=== PATIENT | female | born 1965 | race Caucasian/White ===

== ENCOUNTER 2017-08-27 18:06 | Emergency (ER) | payer MEDICARE ==
[~2017-08-27] VITALS: Ht 154.9 cm; Wt 78.5 kg
== END 2017-08-27 22:56 | disposition home or self-care (01) ==
LOC: ED 18:06
DX: F32.9 Major depressive disorder, single episode, unspecified (principal); Z88.0 Allergy status to penicillin

== ENCOUNTER 2017-08-28 09:06 | Emergency (ER) | payer OTHER ==
[~2017-08-28] VITALS: Ht 154.9 cm; Wt 78.5 kg
[2017-08-28 09:29] LABS: BASO # 0.1 10*3/uL (0.0-0.1); BASO % 1.3 % (0.0-1.0); EOS # 0.4 10*3/uL (0.0-0.4); EOS % 6.8 % (1.0-4.0); HEMATOCRIT 38.9 % (37.0-47.0); HEMOGLOBIN 13.4 g/dl (12.0-16.0); LYMPH # 1.8 10*3/uL (1.3-4.4); LYMPH % 29.3 % (27.0-41.0); MEAN CELL VOLUME 91.3 fl (81.0-99.0); MEAN CORPUSCULAR HGB 31.5 pg (27.0-31.0); MEAN CORPUSCULAR HGB CONC 34.4 g/dl (33.0-37.0); MEAN PLATELET VOLUME 10.1 fl (9.6-12.3); MONO # 0.4 10*3/uL (0.1-1.0); MONO % 6.8 % (3.0-9.0); NEUT # 3.4 10*3/uL (2.3-7.9); NEUT % 55.5 % (47.0-73.0); PLATELET COUNT AUTOMATED 280 10*3/uL (130-400); RED BLOOD COUNT 4.26 10*6/uL (4.10-5.10); RED CELL DISTRI WIDTH 13.9 % (0-14.5); WHITE BLOOD COUNT 6.2 10*3/uL (4.8-10.8)
[2017-08-28 09:42] LABS: ALBUMIN 3.3 gm/dl (3.1-4.5); ALKALINE PHOSPHATASE 113 U/L (45-117); BUN 8 mg/dl (7-24); CREATININE 0.94 mg/dL (0.55-1.02); SGOT/AST 31 IU/L (3-35); SGPT/ALT 30 U/L (12-78); TOTAL PROTEIN 7.5 gm/dL (6.4-8.2)
[2017-08-28 09:47] LABS: CHLORIDE 105 mmol/L (98-107); POTASSIUM 3.1 mmol/L (3.5-5.1); SODIUM 141 mmol/L (136-145)
[2017-08-28 10:00] LABS: ACETAMINOPHEN (TYLENOL) < 2.0 ug/ml (10-30); ETHYL ALCOHOL < 3.0 mg/dl (<3)
[2017-08-28 10:46] LABS: BILIRUBIN NEGATIVE (NEGATIVE); BLOOD 1+ (NEGATIVE); CLARITY CLEAR (CLEAR); COLOR YELLOW (YELLOW); GLUCOSE NEGATIVE (NEGATIVE); KETONE NEGATIVE (NEGATIVE); LEUKO ESTERASE 1+ (NEGATIVE); NITRITE NEGATIVE (NEGATIVE); PH 5.5 (5.0-9.0); UROBILINOGEN 0.2 E.U./dl (0.2-1.0)
[2017-08-28 10:53] LABS: URINE AMPHETAMINES < 1000 (1000ng/ml); URINE BARBITURATES < 200 (200ng/ml); URINE BENZODIAZEPINES < 200 (200ng/ml); URINE CANNABINOIDS (THC) < 50 (50ng/ml); URINE COCAINE < 300 (300ng/ml); URINE METHADONE < 300 (300ng/ml); URINE OPIATES < 300 (300ng/ml)
[2017-08-28 10:54] LABS: BACTERIA TRACE
[2017-08-28 10:57] LABS: URINE PHENCYCLIDINE < 25 (25ng/ml)
== END 2017-08-29 10:06 | disposition home or self-care (01) ==
LOC: ED 09:06
PROVIDERS: Nurse Practitioner Family
DX: F32.9 Major depressive disorder, single episode, unspecified (principal)

== ENCOUNTER 2017-09-02 21:55 | Emergency (ER) | payer OTHER ==
[~2017-09-02] VITALS: Ht 154.9 cm; Wt 78.5 kg
[2017-09-02] MEDS ORDERED: BENADRYL ALLERG25 M5 PO (22:17)
== END 2017-09-02 22:19 | disposition home or self-care (01) ==
LOC: ED 21:55
DX: R11.0 Nausea (principal); T43.595A Adverse effect of other antipsychotics and neuroleptics, initial encounter; Z88.0 Allergy status to penicillin; Z88.8 Allergy status to other drugs, medicaments and biological substances; Y92.9 Unspecified place or not applicable

== ENCOUNTER 2017-09-11 08:29 | Emergency (ER) | payer OTHER ==
[~2017-09-11] VITALS: Ht 154.9 cm; Wt 78.5 kg
[~2017-09-11 08:29] MED LIST: BENADRYL ALLERG25 M5 PO
[2017-09-11 09:01] LABS: BASO # 0.1 10*3/uL (0.0-0.1); BASO % 1.3 % (0.0-1.0); EOS # 0.3 10*3/uL (0.0-0.4); EOS % 4.8 % (1.0-4.0); HEMATOCRIT 39.3 % (37.0-47.0); HEMOGLOBIN 13.5 g/dl (12.0-16.0); LYMPH # 1.7 10*3/uL (1.3-4.4); LYMPH % 24.5 % (27.0-41.0); MEAN CELL VOLUME 90.8 fl (81.0-99.0); MEAN CORPUSCULAR HGB 31.2 pg (27.0-31.0); MEAN CORPUSCULAR HGB CONC 34.4 g/dl (33.0-37.0); MEAN PLATELET VOLUME 9.8 fl (9.6-12.3); MONO # 0.5 10*3/uL (0.1-1.0); MONO % 7.2 % (3.0-9.0); NEUT # 4.4 10*3/uL (2.3-7.9); NEUT % 61.6 % (47.0-73.0); PLATELET COUNT AUTOMATED 356 10*3/uL (130-400); RED BLOOD COUNT 4.33 10*6/uL (4.10-5.10); RED CELL DISTRI WIDTH 13.3 % (0-14.5); WHITE BLOOD COUNT 7.1 10*3/uL (4.8-10.8)
[2017-09-11 09:14] LABS: ALBUMIN 3.4 gm/dl (3.1-4.5); ALKALINE PHOSPHATASE 100 U/L (45-117); BUN 11 mg/dl (7-24); CHLORIDE 106 mmol/L (98-107); CREATININE 1.18 mg/dL (0.55-1.02); POTASSIUM 3.6 mmol/L (3.5-5.1); SGOT/AST 19 IU/L (3-35); SGPT/ALT 24 U/L (12-78); SODIUM 142 mmol/L (136-145); TOTAL PROTEIN 7.6 gm/dL (6.4-8.2)
[2017-09-11 09:21] LABS: ACETAMINOPHEN (TYLENOL) < 2.0 ug/ml (10-30); ETHYL ALCOHOL < 3.0 mg/dl (<3)
[2017-09-11 10:28] LABS: BILIRUBIN NEGATIVE (NEGATIVE); BLOOD 2+ (NEGATIVE); CLARITY SL CLOUDY (CLEAR); COLOR YELLOW (YELLOW); GLUCOSE NEGATIVE (NEGATIVE); KETONE NEGATIVE (NEGATIVE); LEUKO ESTERASE 1+ (NEGATIVE); NITRITE NEGATIVE (NEGATIVE); SPECIFIC GRAVITY 1.015 (1.005-1.030); UROBILINOGEN 0.2 E.U./dl (0.2-1.0)
[2017-09-11 10:36] LABS: URINE AMPHETAMINES < 1000 (1000ng/ml); URINE BARBITURATES < 200 (200ng/ml); URINE BENZODIAZEPINES < 200 (200ng/ml); URINE CANNABINOIDS (THC) < 50 (50ng/ml); URINE COCAINE < 300 (300ng/ml); URINE METHADONE < 300 (300ng/ml); URINE OPIATES < 300 (300ng/ml)
[2017-09-11 10:39] LABS: URINE PHENCYCLIDINE < 25 (25ng/ml)
[2017-09-11 10:43] LABS: BACTERIA TRACE; MUCOUS 3+; WBC 21-30 wbc/hpf (0-5)
== END 2017-09-11 15:49 | disposition home or self-care (01) ==
LOC: ED 08:29
PROVIDERS: Student in an Organized Health Care Education/Training Program
DX: F32.9 Major depressive disorder, single episode, unspecified (principal); Z88.0 Allergy status to penicillin; Z88.8 Allergy status to other drugs, medicaments and biological substances

== ENCOUNTER 2017-09-28 07:59 | Emergency (ER) | payer OTHER ==
[~2017-09-28] VITALS: Ht 154.9 cm; Wt 75.7 kg
[2017-09-28 08:29] LABS: BASO # 0.1 10*3/uL (0.0-0.1); EOS # 0.3 10*3/uL (0.0-0.4); EOS % 4.4 % (1.0-4.0); HEMATOCRIT 35.3 % (37.0-47.0); HEMOGLOBIN 12.4 g/dl (12.0-16.0); LYMPH # 1.5 10*3/uL (1.3-4.4); LYMPH % 24.4 % (27.0-41.0); MEAN CELL VOLUME 88.9 fl (81.0-99.0); MEAN CORPUSCULAR HGB 31.2 pg (27.0-31.0); MEAN CORPUSCULAR HGB CONC 35.1 g/dl (33.0-37.0); MEAN PLATELET VOLUME 10.1 fl (9.6-12.3); MONO # 0.5 10*3/uL (0.1-1.0); MONO % 7.5 % (3.0-9.0); NEUT # 3.8 10*3/uL (2.3-7.9); NEUT % 62.4 % (47.0-73.0); PLATELET COUNT AUTOMATED 270 10*3/uL (130-400); RED BLOOD COUNT 3.97 10*6/uL (4.10-5.10); WHITE BLOOD COUNT 6.1 10*3/uL (4.8-10.8)
[2017-09-28 08:38] LABS: ACT PARTIAL THROMBO TIME 25.5 SECONDS (20.8-31.5)
[2017-09-28 08:49] LABS: ALBUMIN 3.3 gm/dl (3.1-4.5); ALKALINE PHOSPHATASE 85 U/L (45-117); BUN 6 mg/dl (7-24); CHLORIDE 108 mmol/L (98-107); CREATININE 0.81 mg/dL (0.55-1.02); POTASSIUM 3.1 mmol/L (3.5-5.1); SGOT/AST 18 IU/L (3-35); SGPT/ALT 19 U/L (12-78); SODIUM 143 mmol/L (136-145); TOTAL PROTEIN 6.5 gm/dL (6.4-8.2)
[2017-09-28 08:52] LABS: ETHYL ALCOHOL < 3.0 mg/dl (<3)
[2017-09-28 10:50] LABS: BILIRUBIN NEGATIVE (NEGATIVE); BLOOD 1+ (NEGATIVE); CLARITY CLEAR (CLEAR); COLOR YELLOW (YELLOW); GLUCOSE NEGATIVE (NEGATIVE); KETONE NEGATIVE (NEGATIVE); LEUKO ESTERASE NEGATIVE (NEGATIVE); NITRITE NEGATIVE (NEGATIVE); SPECIFIC GRAVITY <= 1.005 (1.005-1.030); UROBILINOGEN 0.2 E.U./dl (0.2-1.0)
[2017-09-28 10:57] LABS: URINE AMPHETAMINES < 1000 (1000ng/ml); URINE BARBITURATES < 200 (200ng/ml); URINE BENZODIAZEPINES < 200 (200ng/ml); URINE CANNABINOIDS (THC) < 50 (50ng/ml); URINE COCAINE < 300 (300ng/ml); URINE METHADONE < 300 (300ng/ml); URINE OPIATES < 300 (300ng/ml)
[2017-09-28 10:58] LABS: URINE PHENCYCLIDINE < 25 (25ng/ml)
== END 2017-09-28 18:15 | disposition home health service (06) ==
LOC: ED 07:59
PROVIDERS: Emergency Medicine
DX: F32.9 Major depressive disorder, single episode, unspecified (principal); R45.851 Suicidal ideations; E87.6 Hypokalemia; Z88.0 Allergy status to penicillin; Z88.1 Allergy status to other antibiotic agents; Z88.8 Allergy status to other drugs, medicaments and biological substances

== ENCOUNTER 2017-10-08 23:10 | Emergency (ER) | payer MEDICARE, MEDICAID ==
[~2017-10-08] VITALS: Ht 167.6 cm; Wt 90.7 kg
== END 2017-10-09 01:17 | disposition home or self-care (01) ==
LOC: ED 23:10
DX: G25.2 Other specified forms of tremor (principal); T43.595A Adverse effect of other antipsychotics and neuroleptics, initial encounter; Z88.0 Allergy status to penicillin; Z88.1 Allergy status to other antibiotic agents; Z88.8 Allergy status to other drugs, medicaments and biological substances; Y92.9 Unspecified place or not applicable

== ENCOUNTER 2017-11-13 03:22 | Inpatient (IN) | payer OTHER, MEDICAID ==
[~2017-11-13] VITALS: Ht 154.9 cm; Wt 80.8 kg
[2017-11-13] VITALS (9 sets, daily range): BP systolic 100–112; BP diastolic 48–73
--- NOTE | ~2017-11-13 | ST ---
[place], [place] EXERCISE STRESS TEST REPORT NAME: DANIEL LUCIO UNIT #: [id number] ROOM: 407 DOCTOR: HANNA FABIAN MD BIRTHDATE: [birth year] DOS: 11/13/2017 REFERRING PHYSICIAN: Dr. Shabazz. INDICATION: Central chest pain. PROCEDURE: The patient underwent standard [place] protocol exercise treadmill stress testing. Baseline EKG is normal sinus rhythm, ____ heart rate is 83 with blood pressure 120/68. The patient's peak heart rate was 149 with blood pressure 140/72. The patient achieved a peak heart rate of 149, which represents 88% of maximum predicted. The patient exercised for 4 minutes 30 seconds with maximal exertional capacity of 5 mets. The patient has had no chest pain, no EKG changes. No arrhythmias. SUMMARY OF FINDINGS: 1. Negative treadmill stress test to exertional level achieved. 2. Marsh Treadmill score 4.5 portending an intermediate risk of cardiovascular events given this workload. 3. Please see separate report for perfusion scan imaging results. HANNA FABIAN MD CM:STRESS:EXERCISE STRESS TEST REPORT [id number] HANNA FABIAN MD
[2017-11-13] MEDS ORDERED: DULOXETINE HCL60 MG PO (03:32)
[2017-11-13] MEDS ORDERED: ATORVASTATIN CA20 M1 PO (03:33)
[2017-11-13] MEDS ORDERED: OMEPRAZOLE D/R20 MG PO (03:33)
[2017-11-13] MEDS ORDERED: BUPROPION HCL200 MG PO (03:33)
[2017-11-13] MEDS ORDERED: FENOFIBRATE54 MG PO (03:34)
[2017-11-13] MEDS ORDERED: OLANZAPINE5 MG PO (03:34)
[2017-11-13] MEDS ORDERED: Synthroid,Levo25 MCG PO (03:34)
[2017-11-13] MEDS ORDERED: POTASSIUM CHLO20 ME4 PO (03:35)
[2017-11-13] MEDS ORDERED: BUPROPION ER100 M1 PO (03:35)
[2017-11-13 03:37] LABS: BASO # 0.1 10*3/uL (0.0-0.1); BASO % 0.6 % (0.0-1.0); EOS # 0.6 10*3/uL (0.0-0.4); EOS % 4.9 % (1.0-4.0); HEMATOCRIT 36.4 % (37.0-47.0); HEMOGLOBIN 12.4 g/dl (12.0-16.0); LYMPH # 1.8 10*3/uL (1.3-4.4); LYMPH % 14.2 % (27.0-41.0); MEAN CELL VOLUME 92.2 fl (81.0-99.0); MEAN CORPUSCULAR HGB 31.4 pg (27.0-31.0); MEAN CORPUSCULAR HGB CONC 34.1 g/dl (33.0-37.0); MEAN PLATELET VOLUME 9.4 fl (9.6-12.3); MONO # 1.1 10*3/uL (0.1-1.0); MONO % 9.1 % (3.0-9.0); NEUT # 8.7 10*3/uL (2.3-7.9); NEUT % 70.2 % (47.0-73.0); PLATELET COUNT AUTOMATED 325 10*3/uL (130-400); RED BLOOD COUNT 3.95 10*6/uL (4.10-5.10); RED CELL DISTRI WIDTH 13.5 % (0-14.5); WHITE BLOOD COUNT 12.4 10*3/uL (4.8-10.8)
--- NOTE | 2017-11-13 03:42 | NUR ---
PT MEDICATED 1 NITROSTAT TAB SL.
[2017-11-13 03:47] LABS: ACT PARTIAL THROMBO TIME 22.7 SECONDS (20.8-31.5)
--- NOTE | 2017-11-13 03:48 | NUR ---
PT DENIES RELIEF OF CHEST PAIN AFTER MEDICATION OF NITROSTAT.PT REPORTS PAIN REMAINS 07/09. AWARE.
[2017-11-13 04:00] LABS: ALBUMIN 3.3 gm/dl (3.1-4.5); ALKALINE PHOSPHATASE 95 U/L (45-117); BUN 14 mg/dl (7-24); CHLORIDE 105 mmol/L (98-107); CREATININE 1.04 mg/dL (0.55-1.02); POTASSIUM 3.7 mmol/L (3.5-5.1); SGOT/AST 26 IU/L (3-35); SGPT/ALT 29 U/L (12-78); SODIUM 140 mmol/L (136-145); TOTAL PROTEIN 7.1 gm/dL (6.4-8.2)
[2017-11-13 04:01] LABS: TROPONIN I < 0.015 ng/ml (<0.045)
--- NOTE | 2017-11-13 04:26 | NUR ---
PT CHECKED FOR WOUNDS PRIOR TO ADMISSION TO FLOOR.PT NOTED TO HAVE SOME REDNESS TO LEFT GROIN AREA.
--- NOTE | 2017-11-13 04:40 | NUR ---
A 52, admitted to , under the services of CROW Mtz DO with a diagnosis of CHEST PAIN. Chief complaint is CHEST PAIN. Patient arrived via bed from ER. Monitor applied. Initial assessment completed. Vital signs taken and recorded. CROW MTZ DO notified of admission to the unit. Orders received. See assessment for past medical history, medications and allergies. Patient and/or family oriented to unit. [facility]. Clothing/patient valuable form completed. JERRY FENTON
--- NOTE | 2017-11-13 04:46 | NUR ---
ASKED PATIENT IF SHE HAD A MEDICATION LIST WITH HER, SHE STATED THAT SHE BROUGHT HER MEDICATIONS WITH HER AND SHE STATED ER CHECKED THEM WITH HER AND TOLD HER SIGNIFICANT OTHER TO TAKE THEM HOME. SHE STATED THAT SHE USES [facility]
--- NOTE | 2017-11-13 05:00 | NUR ---
Medication reconciliation updated and verified with patient who knew her meds and dosages when they were read to her.
[2017-11-13] MEDS ORDERED: HYDROCORTISONE30 GM T (05:04)
--- NOTE | 2017-11-13 05:31 | NUR ---
Called Dr. Fitzgerald's answering service and told them of consult. They said they would notify the doctor.
--- NOTE | 2017-11-13 07:30 | NUR ---
Patient resting quietly with no c/o discomfort. Respirations easy and regular. Vital signs stable. No overt distress. TL MUELLER
--- NOTE | 2017-11-13 08:50 | NUR ---
PT TOOK ALL AM MEDICATIONS W/BREAKFAST.
--- NOTE | 2017-11-13 09:00 | NUR ---
Digital Cartographic Technician in to talk to patient. Patient states lives at home with boyfriend and other family. There are few steps in the home. Physician: randa valadez [facility] Home health services: none Patient's level of ADLs: INDEPENDENT Patient has working utilities: all working DME: none Follow-up physician's appointment after d/c: will be made by hospitalist nurse director upon discharge Does patient want to access PORTAL?: no Discharge plan discussed with patient, patient lives at home with boyfriend and other family, she is independent in adls and ambulation, patient states she will be returning home when able and denies any home needs. MAISHA LAWRENCE
--- NOTE | 2017-11-13 14:00 | NUR ---
INFORMED SIGNED CONSENT OBTAINED FOR CGXT WITH DR FABIAN. RESTING EKG NSR HR 83 BP 120/68 IN SUPINE, STANDING HR 110 BP 120/66. PT COMPLETED 4:30 OF A TEJAS PROTOCOL WITH COMPLETING 1:30 OF A STAGE III AT 2.5 MPH AND A 12% GRADE. PT REACHED A PEAK HR OF 88% AND A PEAK BP OF 140/72. NO ARRHYTHMIAS OR ST CHANGES NOTED. TEST TERMINATED DUE TO FATIGUE. LAST RECOVERY HR OF 106 BP 118/68. PT IN STABLE CONDITION, AWAITINT NUCLEAR IMAGES.
--- NOTE | 2017-11-13 17:22 | NUR ---
Discharge instructions reviewed with patient/family. Patient receptive and verbalizes understanding. Follow-up care arranged. Written instructions given to patient/family. TL MUELLER
== END 2017-11-13 17:22 | disposition home or self-care (01) | DRG 392 ==
LOC: ED 03:22 → EDHOLD 04:16 → 4E 04:25
PROVIDERS: Emergency Medicine; ADMIT Emergency Medicine
PROC: 4A02XM4 Measurement of Cardiac Total Activity, External Approach (ICD-10-PCS; principal; 2017-11-13)
DX: K21.9 Gastro-esophageal reflux disease without esophagitis (principal); N17.9 Acute kidney failure, unspecified; R65.10 Systemic inflammatory response syndrome (SIRS) of non-infectious origin without acute organ dysfunction; E44.1 Mild protein-calorie malnutrition; F33.9 Major depressive disorder, recurrent, unspecified; F41.1 Generalized anxiety disorder; R73.9 Hyperglycemia, unspecified; E78.00 Pure hypercholesterolemia, unspecified; E03.9 Hypothyroidism, unspecified; E86.0 Dehydration; Z88.0 Allergy status to penicillin; Z79.899 Other long term (current) drug therapy; Z88.1 Allergy status to other antibiotic agents; Z88.8 Allergy status to other drugs, medicaments and biological substances; Z91.5 Personal history of self-harm; Z82.49 Family history of ischemic heart disease and other diseases of the circulatory system; Z90.49 Acquired absence of other specified parts of digestive tract; Z90.710 Acquired absence of both cervix and uterus; Z80.1 Family history of malignant neoplasm of trachea, bronchus and lung; Z68.33 Body mass index [BMI] 33.0-33.9, adult

== ENCOUNTER 2017-11-15 20:37 | Emergency (ER) | payer OTHER, MEDICAID ==
[~2017-11-15] VITALS: Wt 86.2 kg
[~2017-11-15 20:37] MED LIST changes: +ATORVASTATIN CA20 M1 PO; +BUPROPION ER100 M1 PO; +BUPROPION HCL200 MG PO; +DULOXETINE HCL60 MG PO; +FENOFIBRATE54 MG PO; +HYDROCORTISONE30 GM T; +OLANZAPINE5 MG PO; +OMEPRAZOLE D/R20 MG PO; +POTASSIUM CHLO20 ME4 PO; +Synthroid,Levo25 MCG PO
[2017-11-15 21:00] LABS: BASO # 0.1 10*3/uL (0.0-0.1); BASO % 0.7 % (0.0-1.0); EOS # 0.8 10*3/uL (0.0-0.4); EOS % 6.9 % (1.0-4.0); HEMOGLOBIN 11.5 g/dl (12.0-16.0); LYMPH # 2.3 10*3/uL (1.3-4.4); LYMPH % 19.5 % (27.0-41.0); MEAN CELL VOLUME 91.6 fl (81.0-99.0); MEAN CORPUSCULAR HGB CONC 33.8 g/dl (33.0-37.0); MEAN PLATELET VOLUME 9.7 fl (9.6-12.3); MONO # 1.1 10*3/uL (0.1-1.0); MONO % 9.5 % (3.0-9.0); NEUT # 7.4 10*3/uL (2.3-7.9); NEUT % 62.6 % (47.0-73.0); PLATELET COUNT AUTOMATED 330 10*3/uL (130-400); RED BLOOD COUNT 3.71 10*6/uL (4.10-5.10); RED CELL DISTRI WIDTH 13.3 % (0-14.5); WHITE BLOOD COUNT 11.8 10*3/uL (4.8-10.8)
[2017-11-15 21:11] LABS: ACT PARTIAL THROMBO TIME 22.4 SECONDS (20.8-31.5); INTERNATIONAL NORM RATIO 0.9 (2.0-3.5)
[2017-11-15 21:17] LABS: ALBUMIN 3.2 gm/dl (3.1-4.5); ALKALINE PHOSPHATASE 88 U/L (45-117); BUN 10 mg/dl (7-24); CHLORIDE 105 mmol/L (98-107); CREATININE 1.03 mg/dL (0.55-1.02); SGOT/AST 26 IU/L (3-35); SGPT/ALT 25 U/L (12-78); SODIUM 139 mmol/L (136-145); TOTAL PROTEIN 7.1 gm/dL (6.4-8.2)
[2017-11-15 21:20] LABS: TROPONIN I < 0.015 ng/ml (<0.045)
== END 2017-11-15 23:21 | disposition home or self-care (01) ==
LOC: ED 20:37
PROVIDERS: Emergency Medicine Emergency Medical Services
DX: K21.9 Gastro-esophageal reflux disease without esophagitis (principal); Z90.49 Acquired absence of other specified parts of digestive tract; Z90.710 Acquired absence of both cervix and uterus; Z79.899 Other long term (current) drug therapy; Z88.0 Allergy status to penicillin; Z88.1 Allergy status to other antibiotic agents; Z88.8 Allergy status to other drugs, medicaments and biological substances

== ENCOUNTER 2017-11-27 19:08 | Emergency (ER) | payer OTHER, MEDICAID ==
[~2017-11-27] VITALS: Ht 154.9 cm; Wt 83.5 kg
[2017-11-27 19:32] LABS: BILIRUBIN NEGATIVE (NEGATIVE); BLOOD 2+ (NEGATIVE); CLARITY CLEAR (CLEAR); COLOR YELLOW (YELLOW); GLUCOSE NEGATIVE (NEGATIVE); KETONE NEGATIVE (NEGATIVE); LEUKO ESTERASE NEGATIVE (NEGATIVE); NITRITE NEGATIVE (NEGATIVE); PH 5.5 (5.0-9.0); SPECIFIC GRAVITY 1.025 (1.005-1.030); UROBILINOGEN 0.2 E.U./dl (0.2-1.0)
[2017-11-27 19:40] LABS: BACTERIA 2+
[2017-11-27 20:00] LABS: BASO # 0.1 10*3/uL (0.0-0.1); BASO % 0.8 % (0.0-1.0); EOS # 0.9 10*3/uL (0.0-0.4); EOS % 10.1 % (1.0-4.0); HEMATOCRIT 32.3 % (37.0-47.0); LYMPH # 2.1 10*3/uL (1.3-4.4); LYMPH % 23.8 % (27.0-41.0); MEAN CELL VOLUME 93.1 fl (81.0-99.0); MEAN CORPUSCULAR HGB 31.7 pg (27.0-31.0); MEAN CORPUSCULAR HGB CONC 34.1 g/dl (33.0-37.0); MEAN PLATELET VOLUME 9.6 fl (9.6-12.3); MONO # 0.8 10*3/uL (0.1-1.0); MONO % 8.7 % (3.0-9.0); NEUT % 55.7 % (47.0-73.0); PLATELET COUNT AUTOMATED 335 10*3/uL (130-400); RED BLOOD COUNT 3.47 10*6/uL (4.10-5.10); RED CELL DISTRI WIDTH 13.7 % (0-14.5)
[2017-11-27 20:16] LABS: ALBUMIN 3.1 gm/dl (3.1-4.5); ALKALINE PHOSPHATASE 77 U/L (45-117); BUN 12 mg/dl (7-24); CHLORIDE 107 mmol/L (98-107); LIPASE 197 U/L (73-393); POTASSIUM 3.7 mmol/L (3.5-5.1); SGOT/AST 19 IU/L (3-35); SGPT/ALT 23 U/L (12-78); SODIUM 143 mmol/L (136-145); TOTAL PROTEIN 6.8 gm/dL (6.4-8.2)
[2017-11-27] MEDS ORDERED: MIRALAX POWDER255 G1 PO (21:16)
[2017-11-27] MEDS ORDERED: MACROBID100 M1 PO (21:16)
== END 2017-11-27 21:41 | disposition home or self-care (01) ==
LOC: ED 19:08
PROVIDERS: Emergency Medicine Emergency Medical Services
DX: K59.00 Constipation, unspecified (principal); R10.32 Left lower quadrant pain; K21.9 Gastro-esophageal reflux disease without esophagitis; E78.5 Hyperlipidemia, unspecified; E66.9 Obesity, unspecified; Z68.34 Body mass index [BMI] 34.0-34.9, adult; Z90.49 Acquired absence of other specified parts of digestive tract; Z90.710 Acquired absence of both cervix and uterus; Z79.899 Other long term (current) drug therapy; Z88.1 Allergy status to other antibiotic agents; Z88.8 Allergy status to other drugs, medicaments and biological substances; Z88.0 Allergy status to penicillin

== ENCOUNTER 2017-12-01 06:41 | Emergency (ER) | payer OTHER, MEDICAID ==
[~2017-12-01] VITALS: Ht 154.9 cm; Wt 83.5 kg
[~2017-12-01 06:41] MED LIST changes: +MACROBID100 M1 PO; +MIRALAX POWDER255 G1 PO
[2017-12-01 07:35] LABS: BASO # 0.1 10*3/uL (0.0-0.1); BASO % 0.9 % (0.0-1.0); EOS # 0.6 10*3/uL (0.0-0.4); EOS % 8.7 % (1.0-4.0); HEMATOCRIT 35.6 % (37.0-47.0); LYMPH # 1.1 10*3/uL (1.3-4.4); LYMPH % 15.2 % (27.0-41.0); MEAN CORPUSCULAR HGB 31.3 pg (27.0-31.0); MEAN CORPUSCULAR HGB CONC 33.7 g/dl (33.0-37.0); MEAN PLATELET VOLUME 9.7 fl (9.6-12.3); MONO # 0.7 10*3/uL (0.1-1.0); MONO % 9.6 % (3.0-9.0); NEUT # 4.8 10*3/uL (2.3-7.9); NEUT % 64.9 % (47.0-73.0); PLATELET COUNT AUTOMATED 350 10*3/uL (130-400); RED BLOOD COUNT 3.83 10*6/uL (4.10-5.10); RED CELL DISTRI WIDTH 13.4 % (0-14.5); WHITE BLOOD COUNT 7.4 10*3/uL (4.8-10.8)
[2017-12-01 07:43] LABS: BILIRUBIN NEGATIVE (NEGATIVE); BLOOD 1+ (NEGATIVE); CLARITY CLEAR (CLEAR); COLOR YELLOW (YELLOW); GLUCOSE NEGATIVE (NEGATIVE); KETONE NEGATIVE (NEGATIVE); LEUKO ESTERASE TRACE (NEGATIVE); NITRITE NEGATIVE (NEGATIVE); SPECIFIC GRAVITY <= 1.005 (1.005-1.030); UROBILINOGEN 0.2 E.U./dl (0.2-1.0)
[2017-12-01 07:49] LABS: ALBUMIN 3.3 gm/dl (3.1-4.5); ALKALINE PHOSPHATASE 76 U/L (45-117); BUN 17 mg/dl (7-24); CHLORIDE 106 mmol/L (98-107); CREATININE 1.07 mg/dL (0.55-1.02); POTASSIUM 4.2 mmol/L (3.5-5.1); SGOT/AST 21 IU/L (3-35); SGPT/ALT 22 U/L (12-78); SODIUM 140 mmol/L (136-145); TOTAL PROTEIN 6.8 gm/dL (6.4-8.2)
[2017-12-01 07:51] LABS: BACTERIA 1+; EPITHELIAL CELLS 0-2
== END 2017-12-01 08:32 | disposition home or self-care (01) ==
LOC: ED 06:41
PROVIDERS: Emergency Medicine
DX: K59.00 Constipation, unspecified (principal); E78.00 Pure hypercholesterolemia, unspecified; K21.9 Gastro-esophageal reflux disease without esophagitis; E03.9 Hypothyroidism, unspecified; E66.9 Obesity, unspecified; Z88.0 Allergy status to penicillin; Z88.1 Allergy status to other antibiotic agents; Z88.8 Allergy status to other drugs, medicaments and biological substances; Z79.899 Other long term (current) drug therapy; Z68.34 Body mass index [BMI] 34.0-34.9, adult

== ENCOUNTER 2017-12-12 19:56 | Emergency (ER) | payer OTHER, MEDICAID ==
[~2017-12-12] VITALS: Ht 154.9 cm; Wt 85.7 kg
[2017-12-12 20:37] LABS: BASO # 0.1 10*3/uL (0.0-0.1); BASO % 0.7 % (0.0-1.0); EOS # 0.6 10*3/uL (0.0-0.4); EOS % 6.9 % (1.0-4.0); HEMATOCRIT 33.4 % (37.0-47.0); HEMOGLOBIN 11.4 g/dl (12.0-16.0); LYMPH # 1.7 10*3/uL (1.3-4.4); LYMPH % 18.8 % (27.0-41.0); MEAN CELL VOLUME 93.3 fl (81.0-99.0); MEAN CORPUSCULAR HGB 31.8 pg (27.0-31.0); MEAN CORPUSCULAR HGB CONC 34.1 g/dl (33.0-37.0); MEAN PLATELET VOLUME 9.4 fl (9.6-12.3); MONO # 0.9 10*3/uL (0.1-1.0); NEUT # 5.7 10*3/uL (2.3-7.9); NEUT % 62.8 % (47.0-73.0); PLATELET COUNT AUTOMATED 352 10*3/uL (130-400); RED BLOOD COUNT 3.58 10*6/uL (4.10-5.10); RED CELL DISTRI WIDTH 13.3 % (0-14.5)
[2017-12-12 20:48] LABS: ACT PARTIAL THROMBO TIME 25.1 SECONDS (20.8-31.5)
[2017-12-12 20:55] LABS: ALKALINE PHOSPHATASE 79 U/L (45-117); BUN 13 mg/dl (7-24); CHLORIDE 103 mmol/L (98-107); CREATININE 1.13 mg/dL (0.55-1.02); POTASSIUM 3.7 mmol/L (3.5-5.1); SGOT/AST 17 IU/L (3-35); SGPT/ALT 21 U/L (12-78); SODIUM 140 mmol/L (136-145); TOTAL PROTEIN 6.7 gm/dL (6.4-8.2)
[2017-12-12 20:56] LABS: TROPONIN I < 0.015 ng/ml (<0.045)
== END 2017-12-12 22:01 | disposition home or self-care (01) ==
LOC: ED 19:56
PROVIDERS: Emergency Medicine Emergency Medical Services
DX: K21.9 Gastro-esophageal reflux disease without esophagitis (principal); Z88.0 Allergy status to penicillin; Z88.1 Allergy status to other antibiotic agents; Z88.8 Allergy status to other drugs, medicaments and biological substances; Z79.899 Other long term (current) drug therapy

== ENCOUNTER 2017-12-23 19:45 | Emergency (ER) | payer OTHER, MEDICAID ==
[~2017-12-23] VITALS: Ht 154.9 cm; Wt 87.1 kg
[2017-12-23 20:13] LABS: BASO # 0.1 10*3/uL (0.0-0.1); BASO % 0.8 % (0.0-1.0); EOS # 0.5 10*3/uL (0.0-0.4); EOS % 6.1 % (1.0-4.0); HEMOGLOBIN 11.5 g/dl (12.0-16.0); LYMPH # 2.2 10*3/uL (1.3-4.4); LYMPH % 24.5 % (27.0-41.0); MEAN CELL VOLUME 91.9 fl (81.0-99.0); MEAN CORPUSCULAR HGB 31.1 pg (27.0-31.0); MEAN CORPUSCULAR HGB CONC 33.8 g/dl (33.0-37.0); MEAN PLATELET VOLUME 9.6 fl (9.6-12.3); MONO # 0.7 10*3/uL (0.1-1.0); MONO % 7.5 % (3.0-9.0); NEUT # 5.3 10*3/uL (2.3-7.9); NEUT % 60.2 % (47.0-73.0); PLATELET COUNT AUTOMATED 365 10*3/uL (130-400); RED CELL DISTRI WIDTH 13.2 % (0-14.5); WHITE BLOOD COUNT 8.8 10*3/uL (4.8-10.8)
[2017-12-23 20:27] LABS: ALBUMIN 3.3 gm/dl (3.1-4.5); CREATININE 1.19 mg/dL (0.55-1.02); POTASSIUM 3.5 mmol/L (3.5-5.1); TOTAL PROTEIN 6.8 gm/dL (6.4-8.2)
[2017-12-23] MEDS ORDERED: PROAIR HFA8.5 GM INH (20:53)
== END 2017-12-23 22:43 | disposition home or self-care (01) ==
LOC: ED 19:45
PROVIDERS: Physician Assistant
DX: J40 Bronchitis, not specified as acute or chronic (principal); Z90.710 Acquired absence of both cervix and uterus; Z90.49 Acquired absence of other specified parts of digestive tract; Z88.0 Allergy status to penicillin; Z88.1 Allergy status to other antibiotic agents

== ENCOUNTER 2018-01-05 11:09 | Emergency (ER) | payer OTHER, MEDICAID ==
[~2018-01-05] VITALS: Ht 154.9 cm; Wt 87.1 kg
[~2018-01-05 11:09] MED LIST changes: +PROAIR HFA8.5 GM INH
[2018-01-05] MEDS ORDERED: SEPTDS PO (12:26)
== END 2018-01-05 13:03 | disposition home or self-care (01) ==
LOC: ED 11:09
DX: L02.31 Cutaneous abscess of buttock (principal); Z90.49 Acquired absence of other specified parts of digestive tract; Z90.710 Acquired absence of both cervix and uterus; Z79.899 Other long term (current) drug therapy; Z88.1 Allergy status to other antibiotic agents; Z88.8 Allergy status to other drugs, medicaments and biological substances; Z88.0 Allergy status to penicillin

== ENCOUNTER 2018-01-19 04:05 | Emergency (ER) | payer OTHER, MEDICAID ==
[~2018-01-19] VITALS: Ht 177.8 cm; Wt 87.1 kg
[~2018-01-19 04:05] MED LIST changes: +SEPTDS PO
[2018-01-19 04:28] LABS: BASO # 0.1 10*3/uL (0.0-0.1); BASO % 0.8 % (0.0-1.0); EOS # 0.3 10*3/uL (0.0-0.4); HEMATOCRIT 34.1 % (37.0-47.0); HEMOGLOBIN 11.5 g/dl (12.0-16.0); LYMPH # 0.5 10*3/uL (1.3-4.4); LYMPH % 8.5 % (27.0-41.0); MEAN CELL VOLUME 91.7 fl (81.0-99.0); MEAN CORPUSCULAR HGB 30.9 pg (27.0-31.0); MEAN CORPUSCULAR HGB CONC 33.7 g/dl (33.0-37.0); MEAN PLATELET VOLUME 9.2 fl (9.6-12.3); MONO # 0.5 10*3/uL (0.1-1.0); MONO % 8.2 % (3.0-9.0); NEUT # 4.6 10*3/uL (2.3-7.9); PLATELET COUNT AUTOMATED 324 10*3/uL (130-400); RED BLOOD COUNT 3.72 10*6/uL (4.10-5.10); RED CELL DISTRI WIDTH 13.1 % (0-14.5)
[2018-01-19 04:39] LABS: ACT PARTIAL THROMBO TIME 24.6 SECONDS (20.8-31.5)
[2018-01-19 04:49] LABS: ALBUMIN 3.2 gm/dl (3.1-4.5); ALKALINE PHOSPHATASE 74 U/L (45-117); BUN 11 mg/dl (7-24); CHLORIDE 105 mmol/L (98-107); CREATININE 0.97 mg/dL (0.55-1.02); POTASSIUM 3.7 mmol/L (3.5-5.1); SGOT/AST 23 IU/L (3-35); SGPT/ALT 24 U/L (12-78); SODIUM 138 mmol/L (136-145); TOTAL PROTEIN 7.1 gm/dL (6.4-8.2)
[2018-01-19 04:52] LABS: TROPONIN I < 0.015 ng/ml (<0.045)
== END 2018-01-19 05:00 | disposition home or self-care (01) ==
LOC: ED 04:05
PROVIDERS: Student in an Organized Health Care Education/Training Program
DX: J09.X2 Influenza due to identified novel influenza A virus with other respiratory manifestations (principal); K21.9 Gastro-esophageal reflux disease without esophagitis; E78.5 Hyperlipidemia, unspecified; F32.9 Major depressive disorder, single episode, unspecified; R73.9 Hyperglycemia, unspecified; Z88.0 Allergy status to penicillin; Z88.1 Allergy status to other antibiotic agents; Z88.8 Allergy status to other drugs, medicaments and biological substances; Z79.899 Other long term (current) drug therapy; Z68.34 Body mass index [BMI] 34.0-34.9, adult

== ENCOUNTER 2018-02-05 14:45 | Emergency (ER) | payer OTHER, MEDICAID ==
[~2018-02-05] VITALS: Ht 154.9 cm; Wt 84.4 kg
[2018-02-05 15:00] LABS: BASO # 0.1 10*3/uL (0.0-0.1); EOS # 0.6 10*3/uL (0.0-0.4); HEMATOCRIT 37.9 % (37.0-47.0); HEMOGLOBIN 12.6 g/dl (12.0-16.0); LYMPH # 2.1 10*3/uL (1.3-4.4); LYMPH % 25.8 % (27.0-41.0); MEAN CELL VOLUME 92.2 fl (81.0-99.0); MEAN CORPUSCULAR HGB 30.7 pg (27.0-31.0); MEAN CORPUSCULAR HGB CONC 33.2 g/dl (33.0-37.0); MEAN PLATELET VOLUME 9.4 fl (9.6-12.3); MONO # 0.8 10*3/uL (0.1-1.0); MONO % 9.9 % (3.0-9.0); NEUT # 4.3 10*3/uL (2.3-7.9); NEUT % 54.5 % (47.0-73.0); PLATELET COUNT AUTOMATED 372 10*3/uL (130-400); RED BLOOD COUNT 4.11 10*6/uL (4.10-5.10); RED CELL DISTRI WIDTH 12.8 % (0-14.5)
[2018-02-05 15:14] LABS: ALBUMIN 3.4 gm/dl (3.1-4.5); ALKALINE PHOSPHATASE 82 U/L (45-117); BUN 9 mg/dl (7-24); CHLORIDE 107 mmol/L (98-107); CREATININE 1.07 mg/dL (0.55-1.02); LIPASE 121 U/L (73-393); SGOT/AST 20 IU/L (3-35); SGPT/ALT 23 U/L (12-78); SODIUM 142 mmol/L (136-145); TOTAL PROTEIN 7.5 gm/dL (6.4-8.2)
== END 2018-02-05 16:22 | disposition home or self-care (01) ==
LOC: ED 14:45
PROVIDERS: Nurse Practitioner Family
DX: R10.13 Epigastric pain (principal); R03.0 Elevated blood-pressure reading, without diagnosis of hypertension; K21.9 Gastro-esophageal reflux disease without esophagitis; E78.5 Hyperlipidemia, unspecified; E03.9 Hypothyroidism, unspecified; E66.9 Obesity, unspecified; Z90.710 Acquired absence of both cervix and uterus; Z90.49 Acquired absence of other specified parts of digestive tract; Z68.34 Body mass index [BMI] 34.0-34.9, adult; Z79.899 Other long term (current) drug therapy; Z88.0 Allergy status to penicillin; Z88.1 Allergy status to other antibiotic agents; Z88.8 Allergy status to other drugs, medicaments and biological substances

== ENCOUNTER 2018-03-12 19:28 | Emergency (ER) | payer OTHER, MEDICAID ==
[~2018-03-12] VITALS: Ht 152.4 cm; Wt 88.0 kg
[2018-03-12] MEDS ORDERED: ARIPIPRAZOLE5 MG PO (19:55)
[2018-03-12] MEDS ORDERED: OLANZAPINE7.5 M1 PO (19:56)
[2018-03-12 20:20] LABS: BASO # 0.1 10*3/uL (0.0-0.1); EOS # 0.5 10*3/uL (0.0-0.4); EOS % 4.9 % (1.0-4.0); HEMATOCRIT 37.3 % (37.0-47.0); HEMOGLOBIN 12.5 g/dl (12.0-16.0); LYMPH # 2.9 10*3/uL (1.3-4.4); LYMPH % 27.2 % (27.0-41.0); MEAN CELL VOLUME 88.8 fl (81.0-99.0); MEAN CORPUSCULAR HGB 29.8 pg (27.0-31.0); MEAN CORPUSCULAR HGB CONC 33.5 g/dl (33.0-37.0); MEAN PLATELET VOLUME 9.5 fl (9.6-12.3); MONO # 1.2 10*3/uL (0.1-1.0); MONO % 11.3 % (3.0-9.0); NEUT # 5.8 10*3/uL (2.3-7.9); NEUT % 54.7 % (47.0-73.0); PLATELET COUNT AUTOMATED 384 10*3/uL (130-400); RED CELL DISTRI WIDTH 13.2 % (0-14.5); WHITE BLOOD COUNT 10.5 10*3/uL (4.8-10.8)
[2018-03-12 20:35] LABS: URINE AMPHETAMINES < 1000 (1000ng/ml); URINE BARBITURATES < 200 (200ng/ml); URINE BENZODIAZEPINES < 200 (200ng/ml); URINE CANNABINOIDS (THC) < 50 (50ng/ml); URINE COCAINE < 300 (300ng/ml); URINE METHADONE < 300 (300ng/ml); URINE OPIATES < 300 (300ng/ml); URINE PHENCYCLIDINE < 25 (25ng/ml)
[2018-03-12 20:35] LABS: ACETAMINOPHEN (TYLENOL) < 2.0 ug/ml (10-30); ALBUMIN 3.5 gm/dl (3.1-4.5); ALKALINE PHOSPHATASE 65 U/L (45-117); BUN 16 mg/dl (7-24); CHLORIDE 102 mmol/L (98-107); CREATININE 1.01 mg/dL (0.55-1.02); POTASSIUM 3.6 mmol/L (3.5-5.1); SGOT/AST 19 IU/L (3-35); SGPT/ALT 20 U/L (12-78); SODIUM 138 mmol/L (136-145); TOTAL PROTEIN 7.4 gm/dL (6.4-8.2)
[2018-03-12 20:36] LABS: ETHYL ALCOHOL < 3.0 mg/dl (<3)
[2018-03-13 08:47] LABS: BILIRUBIN NEGATIVE (NEGATIVE); BLOOD TRACE-INTACT (NEGATIVE); CLARITY SL CLOUDY (CLEAR); COLOR YELLOW (YELLOW); GLUCOSE NEGATIVE (NEGATIVE); KETONE NEGATIVE (NEGATIVE); LEUKO ESTERASE 2+ (NEGATIVE); NITRITE NEGATIVE (NEGATIVE); PH 5.5 (5.0-9.0); SPECIFIC GRAVITY 1.025 (1.005-1.030); UROBILINOGEN 0.2 E.U./dl (0.2-1.0)
[2018-03-13 08:57] LABS: BACTERIA 1+; WBC 16-20 wbc/hpf (0-5)
[2018-03-13 08:58] LABS: CALCIUM OXALATE CRYSTALS 2+
== END 2018-03-13 10:01 | disposition home or self-care (01) ==
LOC: ED 19:28
PROVIDERS: Physician Assistant
DX: F32.9 Major depressive disorder, single episode, unspecified (principal); N39.0 Urinary tract infection, site not specified; R31.9 Hematuria, unspecified; R45.851 Suicidal ideations; F41.1 Generalized anxiety disorder; K21.9 Gastro-esophageal reflux disease without esophagitis; E78.5 Hyperlipidemia, unspecified; E03.9 Hypothyroidism, unspecified; E66.9 Obesity, unspecified; Z68.34 Body mass index [BMI] 34.0-34.9, adult; Z90.49 Acquired absence of other specified parts of digestive tract; Z90.710 Acquired absence of both cervix and uterus; Z79.899 Other long term (current) drug therapy; Z88.0 Allergy status to penicillin; Z88.1 Allergy status to other antibiotic agents; Z88.8 Allergy status to other drugs, medicaments and biological substances; Z88.6 Allergy status to analgesic agent

== ENCOUNTER 2018-03-17 20:25 | Emergency (ER) | payer OTHER, MEDICAID ==
[~2018-03-17] VITALS: Wt 88.0 kg
[~2018-03-17 20:25] MED LIST changes: +ARIPIPRAZOLE5 MG PO; +OLANZAPINE7.5 M1 PO
[2018-03-17 20:53] LABS: BASO # 0.1 10*3/uL (0.0-0.1); BASO % 0.8 % (0.0-1.0); EOS # 0.4 10*3/uL (0.0-0.4); EOS % 4.3 % (1.0-4.0); HEMATOCRIT 34.3 % (37.0-47.0); HEMOGLOBIN 11.4 g/dl (12.0-16.0); LYMPH # 2.1 10*3/uL (1.3-4.4); LYMPH % 24.2 % (27.0-41.0); MEAN CELL VOLUME 91.2 fl (81.0-99.0); MEAN CORPUSCULAR HGB 30.3 pg (27.0-31.0); MEAN CORPUSCULAR HGB CONC 33.2 g/dl (33.0-37.0); MEAN PLATELET VOLUME 9.6 fl (9.6-12.3); MONO # 0.6 10*3/uL (0.1-1.0); MONO % 7.2 % (3.0-9.0); NEUT # 5.4 10*3/uL (2.3-7.9); NEUT % 62.8 % (47.0-73.0); PLATELET COUNT AUTOMATED 333 10*3/uL (130-400); RED BLOOD COUNT 3.76 10*6/uL (4.10-5.10); RED CELL DISTRI WIDTH 13.7 % (0-14.5); WHITE BLOOD COUNT 8.7 10*3/uL (4.8-10.8)
[2018-03-17 21:09] LABS: ALBUMIN 3.1 gm/dl (3.1-4.5); ALKALINE PHOSPHATASE 61 U/L (45-117); BUN 14 mg/dl (7-24); CHLORIDE 107 mmol/L (98-107); CREATININE 0.98 mg/dL (0.55-1.02); POTASSIUM 3.7 mmol/L (3.5-5.1); SGOT/AST 24 IU/L (3-35); SGPT/ALT 21 U/L (12-78); SODIUM 140 mmol/L (136-145); TOTAL PROTEIN 6.7 gm/dL (6.4-8.2)
[2018-03-17 21:10] LABS: ACETAMINOPHEN (TYLENOL) < 2.0 ug/ml (10-30); ETHYL ALCOHOL < 3.0 mg/dl (<3)
[2018-03-17 21:23] LABS: BILIRUBIN NEGATIVE (NEGATIVE); BLOOD 1+ (NEGATIVE); CLARITY CLEAR (CLEAR); COLOR YELLOW (YELLOW); GLUCOSE NEGATIVE (NEGATIVE); KETONE NEGATIVE (NEGATIVE); LEUKO ESTERASE 1+ (NEGATIVE); NITRITE NEGATIVE (NEGATIVE); PH 5.5 (5.0-9.0); UROBILINOGEN 0.2 E.U./dl (0.2-1.0)
[2018-03-17 21:30] LABS: BACTERIA TRACE
[2018-03-17 21:32] LABS: URINE AMPHETAMINES < 1000 (1000ng/ml); URINE BARBITURATES < 200 (200ng/ml); URINE BENZODIAZEPINES < 200 (200ng/ml); URINE CANNABINOIDS (THC) < 50 (50ng/ml); URINE COCAINE < 300 (300ng/ml); URINE METHADONE < 300 (300ng/ml); URINE OPIATES < 300 (300ng/ml)
[2018-03-17 21:33] LABS: URINE PHENCYCLIDINE < 25 (25ng/ml)
== END 2018-03-18 10:00 | disposition home or self-care (01) ==
LOC: ED 20:25
PROVIDERS: Student in an Organized Health Care Education/Training Program
DX: F32.9 Major depressive disorder, single episode, unspecified (principal); R45.851 Suicidal ideations; F41.1 Generalized anxiety disorder; K21.9 Gastro-esophageal reflux disease without esophagitis; E78.5 Hyperlipidemia, unspecified; E03.9 Hypothyroidism, unspecified; E66.9 Obesity, unspecified; Z90.49 Acquired absence of other specified parts of digestive tract; Z90.710 Acquired absence of both cervix and uterus; Z79.899 Other long term (current) drug therapy; Z88.0 Allergy status to penicillin; Z88.1 Allergy status to other antibiotic agents; Z88.8 Allergy status to other drugs, medicaments and biological substances; Z68.34 Body mass index [BMI] 34.0-34.9, adult

== ENCOUNTER 2018-04-20 18:17 | Emergency (ER) | payer OTHER, MEDICAID ==
[~2018-04-20] VITALS: Wt 88.9 kg
== END 2018-04-20 20:02 | disposition home or self-care (01) ==
LOC: ED 18:17
DX: Z00.8 Encounter for other general examination (principal); Z88.1 Allergy status to other antibiotic agents; Z88.0 Allergy status to penicillin; Z90.710 Acquired absence of both cervix and uterus; Z90.49 Acquired absence of other specified parts of digestive tract

== ENCOUNTER 2018-06-13 13:56 | Emergency (ER) | payer OTHER, MEDICAID ==
[~2018-06-13] VITALS: Ht 152.4 cm; Wt 85.7 kg
[2018-06-13] MEDS ORDERED: NYSTATIN CREAM15 GM T (14:15)
[2018-06-13] MEDS ORDERED: VIBRAMYCIN100 MG PO (14:15)
[2018-07-14] MEDS ORDERED: NITROFURANTOIN100 M9 PO (21:26)
[2018-07-15] MEDS ORDERED: PAXIL30 M2 PO (13:35)
[2018-07-15] MEDS ORDERED: PANTOPRAZOLE SO40 MG PO (21:24)
[2018-07-15] MEDS ORDERED: GOOD NEIGHBOR150 MG PO (21:24)
[2018-07-15] MEDS ORDERED: VITAMIN D50000 UNIT PO (21:25)
== END 2018-06-13 14:27 | disposition home or self-care (01) ==
LOC: ED 13:56
DX: L02.415 Cutaneous abscess of right lower limb (principal); L30.4 Erythema intertrigo; Z79.899 Other long term (current) drug therapy; Z88.0 Allergy status to penicillin; Z88.1 Allergy status to other antibiotic agents; Z88.8 Allergy status to other drugs, medicaments and biological substances

== ENCOUNTER → 2018-06-16 | Outpatient (CLI) | payer OTHER, MEDICAID ==
[~2018-06-16] MED LIST changes: +GOOD NEIGHBOR150 MG PO; +NITROFURANTOIN100 M9 PO; +NYSTATIN CREAM15 GM T; +PANTOPRAZOLE SO40 MG PO; +PAXIL30 M2 PO; +PYRIDIUM100 MG PO; +VIBRAMYCIN100 MG PO; +VITAMIN D50000 UNIT PO
[2018-06-16 10:34] LABS: BASO # 0.1 10*3/uL (0.0-0.1); BASO % 1.6 % (0.0-1.0); EOS # 0.3 10*3/uL (0.0-0.4); HEMATOCRIT 39.7 % (37.0-47.0); HEMOGLOBIN 12.7 g/dl (12.0-16.0); LYMPH # 1.5 10*3/uL (1.3-4.4); LYMPH % 29.6 % (27.0-41.0); MEAN CELL VOLUME 91.3 fl (81.0-99.0); MEAN CORPUSCULAR HGB 29.2 pg (27.0-31.0); MEAN PLATELET VOLUME 10.3 fl (9.6-12.3); MONO # 0.4 10*3/uL (0.1-1.0); NEUT # 2.7 10*3/uL (2.3-7.9); NEUT % 54.4 % (47.0-73.0); PLATELET COUNT AUTOMATED 319 10*3/uL (130-400); RED BLOOD COUNT 4.35 10*6/uL (4.10-5.10); RED CELL DISTRI WIDTH 13.4 % (0-14.5)
[2018-06-16 11:04] LABS: ALBUMIN 3.6 gm/dl (3.1-4.5); ALKALINE PHOSPHATASE 72 U/L (45-117); BUN 15 mg/dl (7-24); CHLORIDE 107 mmol/L (98-107); CHOLESTEROL 115 mg/dL (<200); CREATININE 1.14 mg/dL (0.55-1.02); HDL CHOLESTEROL 56 mg/dl (40-60); LDL CHOLESTEROL 44 mg/dL (9-159); POTASSIUM 4.1 mmol/L (3.5-5.1); SGOT/AST 13 IU/L (3-35); SGPT/ALT 19 U/L (12-78); SODIUM 141 mmol/L (136-145); TOTAL PROTEIN 7.3 gm/dL (6.4-8.2); TRIGLYCERIDES 75 mg/dl (<150); VLDL CHOLESTEROL 15 mg/dL (6-40)
== END | disposition home or self-care (01) ==
LOC: LAB 10:16
PROVIDERS: Internal Medicine
DX: Z12.31 Encounter for screening mammogram for malignant neoplasm of breast (principal); M25.561 Pain in right knee; E78.2 Mixed hyperlipidemia; E03.9 Hypothyroidism, unspecified; E55.9 Vitamin D deficiency, unspecified

== ENCOUNTER → 2018-06-23 | Outpatient (CLI) | payer OTHER, MEDICAID ==
--- NOTE | ~2018-06-23 | SLPIE ---
[place], [place] DRIVER LICENSE TECHNICIAN INITIAL EVALUATION NAME: DANIEL LUCIO UNIT #: [id number] ROOM: DOCTOR: DEEPA VARGAS MD Speech Language Pathology Initial Evaluation Page 1 1 of Patient Name: DANIEL LUCIO Date: 06/23/2018 11:47 AM : 1965 SOC Date: 06/23/2018 [facility] Provider #: [id number] Treating Clinician: CHARMAINE Espinal-DRIVER LICENSE TECHNICIAN Referring Physician: DEEPA VARGAS Patient Information Address: [address] [place] [address] Physician: DEEPA VARGAS Physician #: City, State, Zip: [place], [place] [address] Occupation: Unknown # of Approved Visits: 0 Gender: Female Medicaid #: [id number] Welder And Fitter: JORGE HAMMONDS Rehabilitation Information / History Onset Date Code Description Primary Diagnosis: 06/24/2018 A0000 NO DIAGNOSIS SENT TO THE [facility] INTER[facility] Subjective Comments: Initial evaluation created to initiate the electronic medical record. Please see MedEncentive for details. Rehabilitation Information / History Clinical Findings Functional Goals Functional Limitation Reporting Swallowing G8996 - Swallowing functional limitation, current status at therapy episode outset and at reporting intervals Current Status: CI - At least 1 percent but less than 20 percent impaired, limited or restricted G8997 - Swallowing functional limitation, projected goal status, at therapy episode outset, at reporting intervals, and at discharge or to end reporting Goal Status: CI - At least 1 percent but less than 20 percent impaired, limited or restricted G8998 - Swallowing functional limitation, discharge status, at discharge from therapy or to end reporting Discharge Status: CI - At least 1 percent but less than 20 percent impaired, limited or restricted 06/24/2018 11:50:53 AM CHARMAINE Espinal-DRIVER LICENSE TECHNICIAN Date/Time [place], [place] DRIVER LICENSE TECHNICIAN INITIAL EVALUATION NAME: DANIEL LUCIO UNIT #: [id number] ROOM: DOCTOR: SAM IRELAND,[facility] License #: [id number] CM:FERMIN 1152 1152 [facility]
--- NOTE | ~2018-06-23 | SLPPN ---
[place], [place] NURSE ADVISOR PROGRESS NOTE NAME: DANIEL LUCIO UNIT #: [id number] ROOM: DOCTOR: SAM IRELAND,DEEPA Speech Language Pathology Treatment Note Page 1 1 of Patient Name: DANIEL LUCIO Date: 06/23/2018 11:48 AM : 1965 SOC Date: 06/23/2018 Provider: [facility] Provider #: [id number] Treating Clinician: CHARMAINE Espinal-EDDIE Referring Physician: DEEPA VARGAS Onset Date Description Code Primary Diagnosis: 06/24/2018 A0000 NO DIAGNOSIS SENT TO THE [facility] INTERFACE Time In: 10:00 AM Time Out: 11:00 AM NURSE ADVISOR Interventions and CPT Codes Consisted of: CPT Code Modifiers Minutes Units MOTION FLUOROSCOPY/SWALLOW 87411 60 1 Total Minutes: 60 Total Timed Minutes: 0 Total Untimed Minutes: 60 Total Units: 1 Total Timed Units: 0 Total Untimed Units: 1 06/24/2018 11:51:46 AM DAE Espinal Date/Time State License #: [id number] CM:NILDA 1152 1152 [facility] TH[facility]
--- NOTE | ~2018-06-23 | SLPPOC ---
[place], [place] EDGE PLUGGER PLAN OF CARE NAME: DANIEL LUCIO UNIT #: [id number] ROOM: DOCTOR: DEEPA VARGAS MD Speech Language Pathology Plan of Care Page 1 1 (Initial Evaluation) of Patient Name: DANIEL LUCIO Date: 06/23/2018 11:47 AM : 1965 SOC Date: 06/23/2018 Provider: [facility] Provider #: [id number] Treating Clinician: CHARMAINE Espinal-EDGE PLUGGER Referring Physician: DEEPA VARGAS 1 Visits From SOC: Medicaid #: [id number] Onset Date Description Code Primary Diagnosis: 06/24/2018 A0000 NO DIAGNOSIS SENT TO THE [facility] Subjective Comments: Initial evaluation created to initiate the electronic medical record. Please see Cernium for details. Initial Level Goals Functional Limitation Reporting Swallowing G8996 - Swallowing functional limitation, current status at therapy episode outset and at reporting intervals Current Status: CI - At least 1 percent but less than 20 percent impaired, limited or restricted G8997 - Swallowing functional limitation, projected goal status, at therapy episode outset, at reporting intervals, and at discharge or to end reporting Goal Status: CI - At least 1 percent but less than 20 percent impaired, limited or restricted G8998 - Swallowing functional limitation, discharge status, at discharge from therapy or to end reporting Discharge Status: CI - At least 1 percent but less than 20 percent impaired, limited or restricted 06/24/2018 11:50:53 AM DEEPA VARGAS Date/Time CHARMAINE Espinal-EDDIE Date I certify the need for these services furnished under this plan of treatment while under my care. State License #: [id number] CM:SLPPOC 1152 1152 [facility] THER[facility]
--- NOTE | ~2018-06-23 | PROC NOTE ---
[place], [place] PROCEDURE NOTE NAME[id number] UNIT #: [id number] ROOM: DOCTOR: HONGJENNIFERGUSTAVO BIRTHDATE: [birth year] DOS: 06/23/2018 MODIFIED BARIUM SWALLOW ORDERING PHYSICIAN: Dr. Zoie Jacobsen RADIOLOGIST: Dr. Glass. BACKGROUND INFORMATION: The patient, a 53-year-old female was seen for modified barium swallow. This test was ordered due to patient complaints of foods (mostly meats and bread) sticking in her throat. She reported that this has been occurring for the past couple of months and that she can usually clear the sensation with liquid wash. The patient currently receives a regular diet and thin liquid. She did admit to eating less because of this problem and has lost about 10 pounds. She reported her medical history significant for thyroid problems, psych issues and reflux. She was alert and able to follow all commands for the assessment. Oral peripheral examination revealed edentulous status. Lingual, labial, and buccal skills were within normal limits in terms of strength, range of motion, and coordination. The patient was able to volitionally cough and swallow. METHODS AND MATERIALS USED FOR THE EXAM: The patient was positioned in the lateral plane and the exam was viewed under fluoroscopy. The patient was presented with a variety of consistencies to assess swallowing skills including applesauce mixed with barium presented in half teaspoon amounts, barium-coated cookie and bread given in bite size pieces and thin liquid barium taken both by cup and straw. ORAL PHASE: Unremarkable. PHARYNGEAL PHASE: The pharyngeal swallow occurred within a timely manner with all consistencies. Following the swallow, there was no residue in the vallecula or pyriform. The patient displayed no difficulty with puree, barium-coated cookie or thin liquids. There was one instance on first swallow with bread, where the patient displayed penetration during the swallow on the liquid barium that was coating the bread. This did not occur with subsequent swallows of bread or with any other consistency. No aspiration was observed with any consistency. ESOPHAGEAL PHASE: This phase of the swallow was not formally assessed during this exam. IMPRESSIONS AND RECOMMENDATIONS: Based upon assessment results, this 53-year-old patient displayed oral and pharyngeal swallowing skills grossly within normal limits with all consistencies given. There was one instance on first swallow with bread where she displayed penetration during the swallow on the liquid barium that was coating the bread. No aspiration occurred with any consistency. It is recommended that the patient remain on present diet, recommend use of safe swallow strategies such as upright positioning for meals, small bites and sips and alternating liquid and solid. The patient reported [place], [place] PROCEDURE NOTE NAME: DANIEL LUCIO UNIT #: [id number] ROOM: DOCTOR: GUSTAVO GALLARDO BIRTHDATE: [birth year] that she is scheduled for an EGD next week to further assess the esophagus due to the complaints of food sticking. She was educated on results and recommendations and verbalized understanding. Thank you very much for this referral. Should you have any questions regarding this patient, please contact the speech pathologist at [phone]. GUSTAVO GALLARDO CM:PROCNOTE:PROCEDURE NOTE [id number] 0226 GUSTAVO GALLARDO
[2018-06-23 09:58] LABS: CHLORIDE 107 mmol/L (98-107); POTASSIUM 3.6 mmol/L (3.5-5.1); SODIUM 140 mmol/L (136-145)
[2018-06-23 10:05] LABS: BUN 15 mg/dl (7-24); CREATININE 1.06 mg/dL (0.55-1.02)
== END | disposition home or self-care (01) ==
LOC: LAB 08:50 → RAD/SH 08:50
PROVIDERS: Internal Medicine
DX: R13.11 Dysphagia, oral phase (principal); E03.9 Hypothyroidism, unspecified

== ENCOUNTER 2018-07-09 13:49 | Emergency (ER) | payer OTHER, MEDICAID ==
[~2018-07-09] VITALS: Ht 162.5 cm; Wt 85.3 kg
[~2018-07-09 13:49] MED LIST changes: -GOOD NEIGHBOR150 MG PO; -NITROFURANTOIN100 M9 PO; -PANTOPRAZOLE SO40 MG PO; -PAXIL30 M2 PO; -PYRIDIUM100 MG PO; -VITAMIN D50000 UNIT PO
[2018-07-09 15:45] LABS: BASO # 0.1 10*3/uL (0.0-0.1); EOS # 0.3 10*3/uL (0.0-0.4); EOS % 4.1 % (1.0-4.0); HEMATOCRIT 35.8 % (37.0-47.0); LYMPH # 1.6 10*3/uL (1.3-4.4); LYMPH % 20.2 % (27.0-41.0); MEAN CELL VOLUME 89.3 fl (81.0-99.0); MEAN CORPUSCULAR HGB 29.9 pg (27.0-31.0); MEAN CORPUSCULAR HGB CONC 33.5 g/dl (33.0-37.0); MEAN PLATELET VOLUME 10.2 fl (9.6-12.3); MONO # 0.7 10*3/uL (0.1-1.0); MONO % 8.3 % (3.0-9.0); NEUT # 5.3 10*3/uL (2.3-7.9); NEUT % 65.8 % (47.0-73.0); PLATELET COUNT AUTOMATED 275 10*3/uL (130-400); RED BLOOD COUNT 4.01 10*6/uL (4.10-5.10); RED CELL DISTRI WIDTH 13.8 % (0-14.5); WHITE BLOOD COUNT 8.1 10*3/uL (4.8-10.8)
[2018-07-09 15:48] LABS: BILIRUBIN NEGATIVE (NEGATIVE); BLOOD 2+ (NEGATIVE); CLARITY CLEAR (CLEAR); COLOR YELLOW (YELLOW); GLUCOSE NEGATIVE (NEGATIVE); KETONE NEGATIVE (NEGATIVE); LEUKO ESTERASE 1+ (NEGATIVE); NITRITE NEGATIVE (NEGATIVE); UROBILINOGEN 0.2 E.U./dl (0.2-1.0)
[2018-07-09 15:52] LABS: BACTERIA 2+
[2018-07-09 16:01] LABS: ALBUMIN 3.5 gm/dl (3.1-4.5); ALKALINE PHOSPHATASE 68 U/L (45-117); BUN 12 mg/dl (7-24); CHLORIDE 105 mmol/L (98-107); CREATININE 0.99 mg/dL (0.55-1.02); POTASSIUM 3.9 mmol/L (3.5-5.1); SGOT/AST 15 IU/L (3-35); SGPT/ALT 18 U/L (12-78); SODIUM 141 mmol/L (136-145)
[2018-07-09] MEDS ORDERED: MACROBID100 M1 PO (17:47)
[2018-07-09] MEDS ORDERED: PYRIDIUM100 MG PO (17:47)
[2018-07-14] MEDS ORDERED: NITROFURANTOIN100 M9 PO (21:26)
[2018-07-15] MEDS ORDERED: PAXIL30 M2 PO (13:35)
[2018-07-15] MEDS ORDERED: PANTOPRAZOLE SO40 MG PO (21:24)
[2018-07-15] MEDS ORDERED: GOOD NEIGHBOR150 MG PO (21:24)
[2018-07-15] MEDS ORDERED: VITAMIN D50000 UNIT PO (21:25)
== END 2018-07-09 17:53 | disposition home or self-care (01) ==
LOC: ED 13:49
PROVIDERS: Nurse Practitioner
DX: N39.0 Urinary tract infection, site not specified (principal); K59.00 Constipation, unspecified; Z90.49 Acquired absence of other specified parts of digestive tract; Z90.710 Acquired absence of both cervix and uterus; Z79.899 Other long term (current) drug therapy; Z88.1 Allergy status to other antibiotic agents; Z88.0 Allergy status to penicillin; Z88.8 Allergy status to other drugs, medicaments and biological substances

== ENCOUNTER 2018-09-04 07:36 | Emergency (ER) | payer OTHER, MEDICAID ==
[~2018-09-04] VITALS: Ht 152.4 cm; Wt 84.4 kg
[~2018-09-04 07:36] MED LIST changes: +GOOD NEIGHBOR150 MG PO; +NITROFURANTOIN100 M9 PO; +PANTOPRAZOLE SO40 MG PO; +PAXIL30 M2 PO; +PYRIDIUM100 MG PO; +VITAMIN D50000 UNIT PO
[2018-09-04 08:20] LABS: BASO # 0.1 10*3/uL (0.0-0.1); BASO % 1.1 % (0.0-1.0); EOS # 0.3 10*3/uL (0.0-0.4); EOS % 3.9 % (1.0-4.0); HEMOGLOBIN 12.3 g/dl (12.0-16.0); LYMPH # 1.3 10*3/uL (1.3-4.4); LYMPH % 19.2 % (27.0-41.0); MEAN CORPUSCULAR HGB 30.1 pg (27.0-31.0); MEAN CORPUSCULAR HGB CONC 34.2 g/dl (33.0-37.0); MEAN PLATELET VOLUME 9.9 fl (9.6-12.3); MONO # 0.6 10*3/uL (0.1-1.0); MONO % 8.3 % (3.0-9.0); NEUT # 4.7 10*3/uL (2.3-7.9); NEUT % 67.1 % (47.0-73.0); PLATELET COUNT AUTOMATED 307 10*3/uL (130-400); RED BLOOD COUNT 4.09 10*6/uL (4.10-5.10); RED CELL DISTRI WIDTH 14.6 % (0-14.5)
[2018-09-04 08:40] LABS: ALBUMIN 3.4 gm/dl (3.1-4.5); ALKALINE PHOSPHATASE 86 U/L (45-117); BUN 6 mg/dl (7-24); CHLORIDE 105 mmol/L (98-107); POTASSIUM 3.1 mmol/L (3.5-5.1); SGOT/AST 22 IU/L (3-35); SGPT/ALT 26 U/L (12-78); SODIUM 142 mmol/L (136-145); TOTAL PROTEIN 6.8 gm/dL (6.4-8.2)
[2018-09-04] MEDS ORDERED: OFLOXACIN OTIC5 ML OPH (09:49)
[2018-09-04] MEDS ORDERED: LOMOTIL 2.5-0.1 EACH PO (09:50)
== END 2018-09-04 10:04 | disposition home or self-care (01) ==
LOC: ED 07:36
PROVIDERS: Emergency Medicine
DX: H60.91 Unspecified otitis externa, right ear (principal); R19.7 Diarrhea, unspecified; Z88.1 Allergy status to other antibiotic agents; Z88.0 Allergy status to penicillin; Z88.5 Allergy status to narcotic agent; Z88.8 Allergy status to other drugs, medicaments and biological substances; Z79.899 Other long term (current) drug therapy; Z90.49 Acquired absence of other specified parts of digestive tract; Z90.710 Acquired absence of both cervix and uterus

== ENCOUNTER 2018-11-30 14:42 | Emergency (ER) | payer MEDICARE, MEDICAID ==
[~2018-11-30] VITALS: Wt 81.6 kg
[~2018-11-30 14:42] MED LIST changes: +LOMOTIL 2.5-0.1 EACH PO; +OFLOXACIN OTIC5 ML OPH
[2018-11-30 15:34] LABS: BILIRUBIN NEGATIVE (NEGATIVE); BLOOD 1+ (NEGATIVE); CLARITY CLEAR (CLEAR); COLOR YELLOW (YELLOW); GLUCOSE NEGATIVE (NEGATIVE); KETONE NEGATIVE (NEGATIVE); LEUKO ESTERASE TRACE (NEGATIVE); NITRITE NEGATIVE (NEGATIVE); UROBILINOGEN 0.2 E.U./dl (0.2-1.0)
[2018-11-30 15:37] LABS: BASO # 0.1 10*3/uL (0.0-0.1); BASO % 0.9 % (0.0-1.0); EOS # 0.2 10*3/uL (0.0-0.4); EOS % 3.3 % (1.0-4.0); HEMATOCRIT 36.9 % (37.0-47.0); HEMOGLOBIN 12.9 g/dl (12.0-16.0); LYMPH # 2.1 10*3/uL (1.3-4.4); LYMPH % 32.1 % (27.0-41.0); MEAN CELL VOLUME 89.1 fl (81.0-99.0); MEAN CORPUSCULAR HGB 31.2 pg (27.0-31.0); MONO # 0.7 10*3/uL (0.1-1.0); MONO % 10.3 % (3.0-9.0); NEUT # 3.4 10*3/uL (2.3-7.9); NEUT % 53.1 % (47.0-73.0); PLATELET COUNT AUTOMATED 314 10*3/uL (130-400); RED BLOOD COUNT 4.14 10*6/uL (4.10-5.10); RED CELL DISTRI WIDTH 13.3 % (0-14.5); WHITE BLOOD COUNT 6.4 10*3/uL (4.8-10.8)
[2018-11-30 15:42] LABS: BACTERIA TRACE
[2018-11-30 15:52] LABS: ALBUMIN 3.4 gm/dl (3.1-4.5); ALKALINE PHOSPHATASE 89 U/L (45-117); BUN 9 mg/dl (7-24); CHLORIDE 110 mmol/L (98-107); CREATININE 0.79 mg/dL (0.55-1.02); LIPASE 106 U/L (73-393); POTASSIUM 3.3 mmol/L (3.5-5.1); SGOT/AST 22 IU/L (3-35); SGPT/ALT 28 U/L (12-78); SODIUM 142 mmol/L (136-145); TOTAL PROTEIN 7.1 gm/dL (6.4-8.2)
[2018-12-22] MEDS ORDERED: AMINOPHYLLIN200 MG PO (17:42)
[2019-01-07] MEDS ORDERED: CARAFATE1 G1 PO (12:24)
[2019-01-08] MEDS ORDERED: SEPTDS PO (12:21)
[2019-02-02] MEDS ORDERED: PROTONIX40 MG PO (22:36)
[2019-02-07] MEDS ORDERED: BRIN20TA PO (08:01)
[2019-02-07] MEDS ORDERED: QUETIAPINE FUMA50 M1 PO (08:01)
[2019-02-07] MEDS ORDERED: HYDROXYZINE PAM25 M1 PO (08:02)
[2019-02-07] MEDS ORDERED: VITAMIN D5000 UNI1 PO (08:02)
== END 2018-11-30 18:03 | disposition home or self-care (01) ==
LOC: ED 14:42
PROVIDERS: Physician Assistant
DX: R10.30 Lower abdominal pain, unspecified (principal); R19.7 Diarrhea, unspecified; R35.0 Frequency of micturition; R30.0 Dysuria; Z87.440 Personal history of urinary (tract) infections; Z88.1 Allergy status to other antibiotic agents; Z88.0 Allergy status to penicillin; Z88.8 Allergy status to other drugs, medicaments and biological substances; Z79.899 Other long term (current) drug therapy; Z90.710 Acquired absence of both cervix and uterus; Z90.49 Acquired absence of other specified parts of digestive tract

== ENCOUNTER 2018-12-16 15:44 | Emergency (ER) | payer MEDICARE, MEDICAID ==
[~2018-12-16] VITALS: Ht 152.4 cm; Wt 86.2 kg
[~2018-12-16 15:44] MED LIST changes: -AMINOPHYLLIN200 MG PO; -BRIN20TA PO; -CARAFATE1 G1 PO; -CYMBALTA60 MG PO; -HYDROXYZINE PAM25 M1 PO; -PROTONIX40 MG PO; -QUETIAPINE FUMA50 M1 PO; -VITAMIN D5000 UNI1 PO; -ZOFRAN4 MG PO
[2018-12-16 16:45] LABS: BASO # 0.1 10*3/uL (0.0-0.1); BASO % 0.7 % (0.0-1.0); EOS # 0.3 10*3/uL (0.0-0.4); EOS % 3.8 % (1.0-4.0); HEMATOCRIT 36.6 % (37.0-47.0); HEMOGLOBIN 12.5 g/dl (12.0-16.0); LYMPH # 2.3 10*3/uL (1.3-4.4); MEAN CELL VOLUME 90.6 fl (81.0-99.0); MEAN CORPUSCULAR HGB 30.9 pg (27.0-31.0); MEAN CORPUSCULAR HGB CONC 34.2 g/dl (33.0-37.0); MEAN PLATELET VOLUME 9.8 fl (9.6-12.3); MONO # 0.8 10*3/uL (0.1-1.0); NEUT # 4.8 10*3/uL (2.3-7.9); NEUT % 58.1 % (47.0-73.0); PLATELET COUNT AUTOMATED 341 10*3/uL (130-400); RED BLOOD COUNT 4.04 10*6/uL (4.10-5.10); RED CELL DISTRI WIDTH 13.5 % (0-14.5); WHITE BLOOD COUNT 8.3 10*3/uL (4.8-10.8)
[2018-12-16 17:00] LABS: ALBUMIN 3.3 gm/dl (3.1-4.5); ALKALINE PHOSPHATASE 98 U/L (45-117); BUN 8 mg/dl (7-24); CHLORIDE 107 mmol/L (98-107); CREATININE 1.01 mg/dL (0.55-1.02); LIPASE 133 U/L (73-393); POTASSIUM 3.3 mmol/L (3.5-5.1); SGOT/AST 22 IU/L (3-35); SGPT/ALT 23 U/L (12-78); SODIUM 142 mmol/L (136-145); TOTAL PROTEIN 6.9 gm/dL (6.4-8.2)
[2018-12-16 17:06] LABS: BILIRUBIN NEGATIVE (NEGATIVE); BLOOD 2+ (NEGATIVE); CLARITY SL CLOUDY (CLEAR); COLOR YELLOW (YELLOW); GLUCOSE NEGATIVE (NEGATIVE); KETONE NEGATIVE (NEGATIVE); LEUKO ESTERASE 1+ (NEGATIVE); NITRITE NEGATIVE (NEGATIVE); SPECIFIC GRAVITY 1.025 (1.005-1.030); UROBILINOGEN 0.2 E.U./dl (0.2-1.0)
[2018-12-16 17:44] LABS: BACTERIA 1+
[2018-12-16 17:45] LABS: MUCOUS 1+; WBC 16-20 wbc/hpf (0-5)
[2018-12-22] MEDS ORDERED: AMINOPHYLLIN200 MG PO (17:42)
[2019-01-07] MEDS ORDERED: CARAFATE1 G1 PO (12:24)
[2019-01-08] MEDS ORDERED: SEPTDS PO (12:21)
[2019-02-02] MEDS ORDERED: PROTONIX40 MG PO (22:36)
[2019-02-07] MEDS ORDERED: QUETIAPINE FUMA50 M1 PO (08:01)
[2019-02-07] MEDS ORDERED: BRIN20TA PO (08:01)
[2019-02-07] MEDS ORDERED: VITAMIN D5000 UNI1 PO (08:02)
[2019-02-07] MEDS ORDERED: HYDROXYZINE PAM25 M1 PO (08:02)
== END 2018-12-16 18:17 | disposition home or self-care (01) ==
LOC: ED 15:44
PROVIDERS: Nurse Practitioner Family
DX: R19.7 Diarrhea, unspecified (principal); R10.30 Lower abdominal pain, unspecified; E87.6 Hypokalemia; E66.9 Obesity, unspecified; Z79.899 Other long term (current) drug therapy; Z88.0 Allergy status to penicillin; Z88.1 Allergy status to other antibiotic agents; Z88.8 Allergy status to other drugs, medicaments and biological substances

== ENCOUNTER → 2018-12-16 | Outpatient (CLI) | payer MEDICARE, MEDICAID ==
[~2018-12-16] MED LIST changes: +AMINOPHYLLIN200 MG PO; +BRIN20TA PO; +CARAFATE1 G1 PO; +CYMBALTA60 MG PO; +HYDROXYZINE PAM25 M1 PO; +PROTONIX40 MG PO; +QUETIAPINE FUMA50 M1 PO; +VITAMIN D5000 UNI1 PO; +ZOFRAN4 MG PO
[2018-12-17 14:07] LABS: t-TRANSGLUTAMINASE (tTG) IGA <2 U/mL (0-3)
== END | disposition home or self-care (01) ==
LOC: LAB 09:23
PROVIDERS: Physician Assistant
DX: R19.7 Diarrhea, unspecified (principal)

== ENCOUNTER 2018-12-23 18:35 | Emergency (ER) | payer MEDICARE, MEDICAID ==
[~2018-12-23] VITALS: Ht 152.4 cm; Wt 88.5 kg
[~2018-12-23 18:35] MED LIST changes: +AMINOPHYLLIN200 MG PO
[2018-12-23 19:17] LABS: BASO # 0.1 10*3/uL (0.0-0.1); BASO % 1.1 % (0.0-1.0); EOS # 0.4 10*3/uL (0.0-0.4); EOS % 6.2 % (1.0-4.0); HEMATOCRIT 35.8 % (37.0-47.0); HEMOGLOBIN 12.4 g/dl (12.0-16.0); LYMPH # 2.1 10*3/uL (1.3-4.4); LYMPH % 29.9 % (27.0-41.0); MEAN CELL VOLUME 89.5 fl (81.0-99.0); MEAN CORPUSCULAR HGB CONC 34.6 g/dl (33.0-37.0); MEAN PLATELET VOLUME 9.8 fl (9.6-12.3); MONO # 0.6 10*3/uL (0.1-1.0); MONO % 8.3 % (3.0-9.0); NEUT # 3.9 10*3/uL (2.3-7.9); NEUT % 53.8 % (47.0-73.0); PLATELET COUNT AUTOMATED 344 10*3/uL (130-400); RED CELL DISTRI WIDTH 13.1 % (0-14.5); WHITE BLOOD COUNT 7.2 10*3/uL (4.8-10.8)
[2018-12-23 19:32] LABS: ALBUMIN 3.1 gm/dl (3.1-4.5); ALKALINE PHOSPHATASE 95 U/L (45-117); BUN 17 mg/dl (7-24); CHLORIDE 109 mmol/L (98-107); CREATININE 0.92 mg/dL (0.55-1.02); POTASSIUM 3.4 mmol/L (3.5-5.1); SGOT/AST 22 IU/L (3-35); SGPT/ALT 24 U/L (12-78); SODIUM 141 mmol/L (136-145); TOTAL PROTEIN 6.8 gm/dL (6.4-8.2)
[2018-12-23 19:35] LABS: ACETAMINOPHEN (TYLENOL) < 5.0 ug/ml (10-30); ETHYL ALCOHOL < 3.0 mg/dl (<3)
[2018-12-23 19:57] LABS: BILIRUBIN NEGATIVE (NEGATIVE); BLOOD 2+ (NEGATIVE); CLARITY SL CLOUDY (CLEAR); COLOR YELLOW (YELLOW); GLUCOSE NEGATIVE (NEGATIVE); KETONE NEGATIVE (NEGATIVE); LEUKO ESTERASE TRACE (NEGATIVE); NITRITE NEGATIVE (NEGATIVE); UROBILINOGEN 0.2 E.U./dl (0.2-1.0)
[2018-12-23 20:04] LABS: BACTERIA 2+; MUCOUS TRACE; WBC 0-2 wbc/hpf (0-5)
[2018-12-23 20:06] LABS: URINE AMPHETAMINES < 1000 (1000ng/ml); URINE BARBITURATES < 200 (200ng/ml); URINE BENZODIAZEPINES < 200 (200ng/ml); URINE CANNABINOIDS (THC) < 50 (50ng/ml); URINE COCAINE < 300 (300ng/ml); URINE METHADONE < 300 (300ng/ml); URINE OPIATES < 300 (300ng/ml)
[2018-12-23 20:09] LABS: URINE PHENCYCLIDINE < 25 (25ng/ml)
[2019-01-07] MEDS ORDERED: CARAFATE1 G1 PO (12:24)
[2019-01-08] MEDS ORDERED: SEPTDS PO (12:21)
[2019-02-02] MEDS ORDERED: PROTONIX40 MG PO (22:36)
[2019-02-07] MEDS ORDERED: BRIN20TA PO (08:01)
[2019-02-07] MEDS ORDERED: QUETIAPINE FUMA50 M1 PO (08:01)
[2019-02-07] MEDS ORDERED: HYDROXYZINE PAM25 M1 PO (08:02)
[2019-02-07] MEDS ORDERED: VITAMIN D5000 UNI1 PO (08:02)
== END 2018-12-24 12:52 | disposition home health service (06) ==
LOC: ED 18:35
PROVIDERS: Nurse Practitioner Family
DX: F32.9 Major depressive disorder, single episode, unspecified (principal); R45.851 Suicidal ideations; K21.9 Gastro-esophageal reflux disease without esophagitis; E78.5 Hyperlipidemia, unspecified; E03.9 Hypothyroidism, unspecified; E66.9 Obesity, unspecified; Z88.1 Allergy status to other antibiotic agents; Z88.0 Allergy status to penicillin; Z88.8 Allergy status to other drugs, medicaments and biological substances; Z79.899 Other long term (current) drug therapy; Z68.34 Body mass index [BMI] 34.0-34.9, adult

== ENCOUNTER 2019-01-09 02:46 | Emergency (ER) | payer MEDICARE, MEDICAID ==
[~2019-01-09] VITALS: Ht 152.4 cm; Wt 88.5 kg
[~2019-01-09 02:46] MED LIST changes: +CARAFATE1 G1 PO
[2019-02-02] MEDS ORDERED: PROTONIX40 MG PO (22:36)
[2019-02-07] MEDS ORDERED: QUETIAPINE FUMA50 M1 PO (08:01)
[2019-02-07] MEDS ORDERED: BRIN20TA PO (08:01)
[2019-02-07] MEDS ORDERED: VITAMIN D5000 UNI1 PO (08:02)
[2019-02-07] MEDS ORDERED: HYDROXYZINE PAM25 M1 PO (08:02)
[2019-06-21] MEDS ORDERED: VIIBRYD40 PO (09:06)
[2019-06-21] MEDS ORDERED: HYDROXYZINE PAM25 M1 PO (09:06)
[2019-06-21] MEDS ORDERED: QUETIAPINE FUMA50 M1 PO (09:06)
[2019-07-02] MEDS ORDERED: ZOFRAN4 MG PO (22:18)
[2019-07-02] MEDS ORDERED: SEPTDS PO (22:18)
== END 2019-01-09 05:02 | disposition home or self-care (01) ==
LOC: ED 02:46
DX: K30 Functional dyspepsia (principal); R51 Headache; R11.2 Nausea with vomiting, unspecified; R79.1 Abnormal coagulation profile; K21.9 Gastro-esophageal reflux disease without esophagitis; E78.5 Hyperlipidemia, unspecified; E03.9 Hypothyroidism, unspecified; E66.9 Obesity, unspecified; Z88.1 Allergy status to other antibiotic agents; Z88.0 Allergy status to penicillin; Z88.8 Allergy status to other drugs, medicaments and biological substances; Z79.899 Other long term (current) drug therapy

== ENCOUNTER 2019-01-20 12:50 | Emergency (ER) | payer MEDICARE, MEDICAID ==
[~2019-01-20] VITALS: Ht 632.4 cm; Wt 85.7 kg
[2019-01-20] MEDS ORDERED: CYMBALTA60 MG PO (13:21)
[2019-01-20 14:00] LABS: HEMATOCRIT 37.3 % (37.0-47.0); HEMOGLOBIN 12.5 g/dl (12.0-16.0); MEAN CELL VOLUME 89.9 fl (81.0-99.0); MEAN CORPUSCULAR HGB 30.1 pg (27.0-31.0); MEAN CORPUSCULAR HGB CONC 33.5 g/dl (33.0-37.0); MEAN PLATELET VOLUME 9.3 fl (9.6-12.3); PLATELET COUNT AUTOMATED 335 10*3/uL (130-400); RED BLOOD COUNT 4.15 10*6/uL (4.10-5.10); RED CELL DISTRI WIDTH 13.6 % (0-14.5); WHITE BLOOD COUNT 4.3 10*3/uL (4.8-10.8)
[2019-01-20 14:22] LABS: ALBUMIN 3.2 gm/dl (3.1-4.5); ALKALINE PHOSPHATASE 77 U/L (45-117); BUN 12 mg/dl (7-24); CHLORIDE 108 mmol/L (98-107); CREATININE 0.85 mg/dL (0.55-1.02); POTASSIUM 3.8 mmol/L (3.5-5.1); SGOT/AST 48 IU/L (3-35); SGPT/ALT 30 U/L (12-78); SODIUM 143 mmol/L (136-145); TOTAL PROTEIN 6.9 gm/dL (6.4-8.2)
[2019-01-20 14:24] LABS: ETHYL ALCOHOL < 3.0 mg/dl (<3)
[2019-01-20 14:27] LABS: ACETAMINOPHEN (TYLENOL) 94.7 ug/ml (10-30)
[2019-01-20 14:39] LABS: ATYPICAL LYMPHS 2 % (0-0); BASOPHILS 3 % (0-1); PLATELET SUFFICIENCY NORMAL (NORMAL); TOTAL CELLS COUNTED 100 #CELLS
[2019-02-02] MEDS ORDERED: PROTONIX40 MG PO (22:36)
[2019-02-07] MEDS ORDERED: BRIN20TA PO (08:01)
[2019-02-07] MEDS ORDERED: QUETIAPINE FUMA50 M1 PO (08:01)
[2019-02-07] MEDS ORDERED: HYDROXYZINE PAM25 M1 PO (08:02)
[2019-02-07] MEDS ORDERED: VITAMIN D5000 UNI1 PO (08:02)
[2019-06-21] MEDS ORDERED: QUETIAPINE FUMA50 M1 PO (09:06)
[2019-06-21] MEDS ORDERED: HYDROXYZINE PAM25 M1 PO (09:06)
[2019-06-21] MEDS ORDERED: VIIBRYD40 PO (09:06)
[2019-07-02] MEDS ORDERED: SEPTDS PO (22:18)
[2019-07-02] MEDS ORDERED: ZOFRAN4 MG PO (22:18)
== END 2019-01-20 18:46 | disposition home or self-care (01) ==
LOC: ED 12:50
PROVIDERS: Emergency Medicine
DX: F31.9 Bipolar disorder, unspecified (principal); K21.9 Gastro-esophageal reflux disease without esophagitis; E78.5 Hyperlipidemia, unspecified; E03.9 Hypothyroidism, unspecified; E66.9 Obesity, unspecified; Z79.899 Other long term (current) drug therapy; Z88.1 Allergy status to other antibiotic agents; Z88.0 Allergy status to penicillin; Z88.8 Allergy status to other drugs, medicaments and biological substances

== ENCOUNTER 2019-01-29 15:18 | Emergency (ER) | payer MEDICARE, MEDICAID ==
[~2019-01-29] VITALS: Ht 152.4 cm; Wt 85.7 kg
[~2019-01-29 15:18] MED LIST changes: +CYMBALTA60 MG PO
[2019-01-29 16:19] LABS: BASO # 0.2 10*3/uL (0.0-0.1); BASO % 2.1 % (0.0-1.0); EOS # 0.6 10*3/uL (0.0-0.4); EOS % 7.7 % (1.0-4.0); HEMATOCRIT 37.2 % (37.0-47.0); HEMOGLOBIN 12.4 g/dl (12.0-16.0); LYMPH # 2.1 10*3/uL (1.3-4.4); LYMPH % 27.3 % (27.0-41.0); MEAN CORPUSCULAR HGB 30.3 pg (27.0-31.0); MEAN CORPUSCULAR HGB CONC 33.3 g/dl (33.0-37.0); MEAN PLATELET VOLUME 9.7 fl (9.6-12.3); MONO # 0.6 10*3/uL (0.1-1.0); MONO % 8.1 % (3.0-9.0); NEUT # 4.3 10*3/uL (2.3-7.9); NEUT % 54.5 % (47.0-73.0); PLATELET COUNT AUTOMATED 310 10*3/uL (130-400); RED BLOOD COUNT 4.09 10*6/uL (4.10-5.10); RED CELL DISTRI WIDTH 13.5 % (0-14.5); WHITE BLOOD COUNT 7.8 10*3/uL (4.8-10.8)
[2019-01-29 16:42] LABS: ALBUMIN 3.5 gm/dl (3.1-4.5); ALKALINE PHOSPHATASE 88 U/L (45-117); BUN 11 mg/dl (7-24); CHLORIDE 105 mmol/L (98-107); CREATININE 1.04 mg/dL (0.55-1.02); LIPASE 208 U/L (73-393); POTASSIUM 3.6 mmol/L (3.5-5.1); SGOT/AST 44 IU/L (3-35); SGPT/ALT 43 U/L (12-78); SODIUM 138 mmol/L (136-145); TOTAL PROTEIN 7.5 gm/dL (6.4-8.2)
[2019-01-29] MEDS ORDERED: ZOFRAN4 MG PO (17:22)
[2019-02-02] MEDS ORDERED: PROTONIX40 MG PO (22:36)
[2019-02-07] MEDS ORDERED: QUETIAPINE FUMA50 M1 PO (08:01)
[2019-02-07] MEDS ORDERED: BRIN20TA PO (08:01)
[2019-02-07] MEDS ORDERED: HYDROXYZINE PAM25 M1 PO (08:02)
[2019-02-07] MEDS ORDERED: VITAMIN D5000 UNI1 PO (08:02)
[2019-06-21] MEDS ORDERED: HYDROXYZINE PAM25 M1 PO (09:06)
[2019-06-21] MEDS ORDERED: QUETIAPINE FUMA50 M1 PO (09:06)
[2019-06-21] MEDS ORDERED: VIIBRYD40 PO (09:06)
[2019-07-02] MEDS ORDERED: ZOFRAN4 MG PO (22:18)
[2019-07-02] MEDS ORDERED: SEPTDS PO (22:18)
== END 2019-01-29 17:19 | disposition home or self-care (01) ==
LOC: ED 15:18
PROVIDERS: Nurse Practitioner Family
DX: K52.9 Noninfective gastroenteritis and colitis, unspecified (principal); E03.9 Hypothyroidism, unspecified; K21.9 Gastro-esophageal reflux disease without esophagitis; Z88.1 Allergy status to other antibiotic agents; Z88.0 Allergy status to penicillin; Z88.8 Allergy status to other drugs, medicaments and biological substances; Z79.899 Other long term (current) drug therapy; Z90.710 Acquired absence of both cervix and uterus; Z90.49 Acquired absence of other specified parts of digestive tract

== ENCOUNTER → 2019-04-11 | Outpatient (CLI) | payer MEDICARE, MEDICAID ==
[~2019-04-11] MED LIST changes: +BRIN10TA PO; +BRIN20TA PO; +HYDROXYZINE PAM25 M1 PO; +OYSTER SHELL C500 M4 PO; +Oscal,Oyster S500 MG PO; +PATANOL 0.1% 5 M5 ML OPH; +PROTONIX40 MG PO; +QUETIAPINE FUMA50 M1 PO; +VIIBRYD40 PO; +VISTARIL50 MG PO; +VITAMIN D5000 UNI1 PO; +ZOFRAN4 MG PO
[2019-04-11 14:44] LABS: ALBUMIN 3.6 gm/dl (3.1-4.5); ALKALINE PHOSPHATASE 97 U/L (45-117); BUN 13 mg/dl (7-24); CHLORIDE 106 mmol/L (98-107); CHOLESTEROL 226 mg/dL (<200); CREATININE 0.91 mg/dL (0.55-1.02); POTASSIUM 3.9 mmol/L (3.5-5.1); SGOT/AST 19 IU/L (3-35); SGPT/ALT 18 U/L (12-78); SODIUM 141 mmol/L (136-145); TOTAL PROTEIN 7.4 gm/dL (6.4-8.2)
[2019-04-11 14:47] LABS: HDL CHOLESTEROL 45 mg/dl (40-60); LDL CHOLESTEROL 130 mg/dL (9-159); TRIGLYCERIDES 256 mg/dl (<150); VLDL CHOLESTEROL 51 mg/dL (6-40)
== END | disposition home or self-care (01) ==
LOC: LAB 13:22
PROVIDERS: Physician Assistant
DX: F33.9 Major depressive disorder, recurrent, unspecified (principal); E03.9 Hypothyroidism, unspecified; E78.2 Mixed hyperlipidemia; K21.9 Gastro-esophageal reflux disease without esophagitis

== ENCOUNTER 2019-05-13 10:20 | Emergency (ER) | payer OTHER, MEDICAID ==
[~2019-05-13] VITALS: Ht 152.4 cm; Wt 83.9 kg
[~2019-05-13 10:20] MED LIST changes: -BRIN10TA PO; -OYSTER SHELL C500 M4 PO; -Oscal,Oyster S500 MG PO; -PATANOL 0.1% 5 M5 ML OPH; -VIIBRYD40 PO; -VISTARIL50 MG PO
[2019-05-13 10:51] LABS: BILIRUBIN NEGATIVE (NEGATIVE); BLOOD 2+ (NEGATIVE); CLARITY SL CLOUDY (CLEAR); COLOR YELLOW (YELLOW); GLUCOSE NEGATIVE (NEGATIVE); KETONE NEGATIVE (NEGATIVE); LEUKO ESTERASE 1+ (NEGATIVE); NITRITE NEGATIVE (NEGATIVE); SPECIFIC GRAVITY 1.025 (1.005-1.030); UROBILINOGEN 0.2 E.U./dl (0.2-1.0)
[2019-05-13 11:13] LABS: BACTERIA 2+
[2019-05-13] MEDS ORDERED: MACROBID100 M1 PO (11:15)
[2019-06-21] MEDS ORDERED: VIIBRYD40 PO (09:06)
[2019-06-21] MEDS ORDERED: QUETIAPINE FUMA50 M1 PO (09:06)
[2019-06-21] MEDS ORDERED: HYDROXYZINE PAM25 M1 PO (09:06)
[2019-07-02] MEDS ORDERED: ZOFRAN4 MG PO (22:18)
[2019-07-02] MEDS ORDERED: SEPTDS PO (22:18)
== END 2019-05-13 11:57 | disposition home or self-care (01) ==
LOC: ED 10:20
PROVIDERS: Nurse Practitioner Family
DX: N39.0 Urinary tract infection, site not specified (principal); E78.5 Hyperlipidemia, unspecified; E03.9 Hypothyroidism, unspecified; K21.9 Gastro-esophageal reflux disease without esophagitis; Z88.1 Allergy status to other antibiotic agents; Z88.8 Allergy status to other drugs, medicaments and biological substances; Z88.0 Allergy status to penicillin; Z79.899 Other long term (current) drug therapy; Z90.710 Acquired absence of both cervix and uterus; Z90.49 Acquired absence of other specified parts of digestive tract

== ENCOUNTER 2019-05-15 19:28 | Inpatient (IN) | payer OTHER, MEDICAID ==
[~2019-05-15] VITALS: Ht 154.9 cm; Wt 86.1 kg
--- NOTE | ~2019-05-15 | CON ---
[place], [place] REPORT OF CONSULTATION NAME: DANIEL HAMMONDS UNIT #: [id number] ROOM: 502 DOCTOR: CHRISS IRELANDCALIXTO BIRTHDATE: [birth year] DOS: 05/16/2019 CARDIOLOGY CONSULTATION REASON FOR CONSULTATION: Chest pain. HISTORY OF PRESENT ILLNESS: The patient is a 54-year-old patient was admitted for chest pain. The patient was admitted, treated with Macrobid for urinary tract infection. She developed left-sided chest pain at rest. She described this as a sharp pain, no radiation. It is a constant pain associated with some lightheadedness and diaphoresis. This pain lasts for several minutes and gradually eased off on its own. She denies any chest pains or palpitations. No dizziness or syncope. She did have some nausea and diarrhea, probably related to her antibiotics which were given for her urinary tract infection. No PND, no orthopnea, no palpitation or dizziness, no syncope, no fever and chills. No cough or hemoptysis. REVIEW OF SYSTEMS: Review of the 10 systems negative except as mentioned above. PAST MEDICAL HISTORY: 1. History of dyslipidemia. 2. Anxiety. 3. Acid reflux. 4. Bipolar. 5. Cyclothymic disorder. 6. Dysphagia. 7. Hypothyroidism. 8. Non-morbid obesity. 9. Vitamin D deficiency. PAST SURGICAL HISTORY: History of cholecystectomy and hysterectomy. SOCIAL HISTORY: The patient does not smoke, does not drink, does not use illicit drugs. FAMILY HISTORY: Father at age 62 from myocardial infarction. Mother had a TIA from lung cancer at age of 74. ALLERGIES: The patient is allergic to multiple medications, reviewed. HOME MEDICATIONS: Reviewed. PHYSICAL EXAMINATION: VITAL SIGNS: Blood pressure 104/60, pulse 58, respiratory rate was 20, weight 86.1, BMI 35.9. GENERAL: Alert, comfortable, in no acute distress. NECK: Supple, no distended neck veins, no carotid bruit. CHEST: Symmetrical, nontender. LUNGS: Clear to auscultation bilaterally. HEART: Regular rhythm, no S3, no palpable thrills. [place], [place] REPORT OF CONSULTATION NAME: DANIEL HAMMONDS UNIT #: [id number] ROOM: 502 DOCTOR: CHRISS IRELAND,CALIXTO BIRTHDATE: [birth year] ABDOMEN: Benign, nontender. Bowel sounds normal. EXTREMITIES: Showed no edema. Distal pulses palpable. SKIN: Warm and dry and no cyanosis, no clubbing. RECTAL: Deferred. GENITOURINARY: Deferred. PSYCHIATRIC: The patient is alert and oriented with no focal neurologic deficit. REVIEW OF THE DIAGNOSTIC TESTS: EKG, imaging studies and labs reviewed. EKG shows normal sinus rhythm, nonspecific ST-T changes. CBC and chemistry unremarkable. Cardiac troponins are negative. TSH is normal. Her stress test from October 2017 reviewed. IMPRESSION: 1. Chest pain, atypical, myocardial infarction ruled out. 2. Sinus bradycardia, mild, asymptomatic. 3. Dyslipidemia. 4. Non-morbid obesity. 5. Nausea and diarrhea, currently better. RECOMMENDATIONS: 1. The patient denies exertional chest pains. EKG showed no ischemia. Cardiac enzymes unremarkable. She had a nonischemic stress test about a year and half ago. 2. No further cardiac testing required. 3. The patient can be discharged from the cardiac standpoint. 4. Risk factor modification for diet, exercise and weight loss discussed. 5. No family at bedside at the time of my examination. CALIXTO BANERJEE MD CM:CONSTR:REPORT OF CONSULTATION 29 05/17/19 0330 interface
--- NOTE | ~2019-05-15 | EKG ---
[place], [place] ELECTROCARDIOGRAM REPORT NAME: DANIEL HAMMONDS UNIT #: [id number] ROOM: 502 DOCTOR: DIMAS DRAFT REPORT BIRTHDATE: [birth year] [facility] Test Date: 2019-05-15 Test Time: 22:57:42 Pat Name: DANIEL HAMMONDS Department: Room: [facility] Gender: F Medical Office Manager: VIGNESH : 1965 Requested By: VIKKI RIVAS Order Number: [id number] Reading MD: Grant Singh Measurements Intervals [place] Rate: 63 P: 20 OR: 180 QRS: -2 QRSD: 97 T: 18 QT: 443 QTc: 454 Interpretive Statements Sinus rhythm RSR' in V1 or V2, right VCD or RVH Compared to ECG 01/07/2019 11:17:24 Right ventricular hypertrophy now present RSR' in V1 or V2 now present Electronically Signed On 05-19-2019 4:18:54 PDT by Grant Singh CM:EKGRPT:ELECTROCARDIOGRAM REPORT [id number] 0418 VIKKI COCHRAN DRAFT REPORT VIKKI RIVAS MD
--- NOTE | ~2019-05-15 | EKG ---
[place], [place] ELECTROCARDIOGRAM REPORT NAME: DANIEL HAMMONDS UNIT #: [id number] ROOM: 502 DOCTOR: COCOANY DRAFT REPORT BIRTHDATE: [birth year] [facility] Test Date: 2019-05-15 Test Time: 20:07:39 Pat Name: DANIEL HAMMONDS Department: Room: [facility] Gender: F Well Point Pumping Supervisor: : 1965 Requested By: VIKKI RIVAS Order Number: [id number] Reading MD: Grant Singh Measurements Intervals [place] Rate: 60 P: 9 [place]: 160 QRS: 2 QRSD: 98 T: 27 QT: 445 QTc: 445 Interpretive Statements Sinus rhythm RSR' in V1 or V2, probably normal variant Borderline T wave abnormalities Compared to ECG 01/07/2019 11:17:24 RSR' in V1 or V2 now present T-wave abnormality now present Electronically Signed On 05-19-2019 4:18:26 PDT by Grant Singh CM:EKGRPT:ELECTROCARDIOGRAM REPORT 06 0418 VIKKI RIVAS MD EPIPHANY DRAFT REPORT VIKKI RIVAS MD
--- NOTE | ~2019-05-15 | EKG ---
[place], [place] ELECTROCARDIOGRAM REPORT NAME: DANIEL HAMMONDS UNIT #: [id number] ROOM: 502 DOCTOR: DIMAS DRAFT REPORT BIRTHDATE: [birth year] [facility] Test Date: 2019-05-16 Test Time: 02:04:57 Pat Name: DANIEL HAMMONDS Department: Room: [facility] Gender: F Sizing Machine Operator: : 1965 Requested By: VIKKI RIVAS Order Number: [id number] Reading MD: Grant Singh Measurements Intervals [place] Rate: 60 P: 39 MD: 191 QRS: 13 QRSD: 95 T: 34 QT: 471 QTc: 471 Interpretive Statements Sinus rhythm Low voltage, precordial leads RSR' in V1 or V2, probably normal variant Compared to ECG 01/07/2019 11:17:24 Low QRS voltage now present RSR' in V1 or V2 now present Electronically Signed On 05-19-2019 4:19:05 PDT by Grant Singh CM:EKGRPT:ELECTROCARDIOGRAM REPORT [id number] 0419 VIKKI COCHRAN DRAFT REPORT VIKKI RIVAS MD
[2019-05-15 19:31] VITALS: BP 104/42
--- NOTE | 2019-05-15 20:00 | NUR ---
PATIENT REPORTS TO MD THAT SHE IS NOW EXPERIENCING PAIN UNDER THE LEFT BREAST 04/08
[2019-05-15 20:22] LABS: BILIRUBIN NEGATIVE (NEGATIVE); BLOOD 1+ (NEGATIVE); CLARITY CLEAR (CLEAR); COLOR YELLOW (YELLOW); GLUCOSE NEGATIVE (NEGATIVE); KETONE NEGATIVE (NEGATIVE); LEUKO ESTERASE 1+ (NEGATIVE); NITRITE NEGATIVE (NEGATIVE); SPECIFIC GRAVITY <= 1.005 (1.005-1.030); UROBILINOGEN 0.2 E.U./dl (0.2-1.0)
[2019-05-15 20:29] LABS: BACTERIA 1+
[2019-05-15 20:43] VITALS: BP 104/59
[2019-05-15 20:51] LABS: BASO # 0.1 10*3/uL (0.0-0.1); BASO % 1.3 % (0.0-1.0); EOS # 0.3 10*3/uL (0.0-0.4); EOS % 4.5 % (1.0-4.0); HEMATOCRIT 38.7 % (37.0-47.0); HEMOGLOBIN 12.9 g/dl (12.0-16.0); LYMPH # 1.7 10*3/uL (1.3-4.4); MEAN CORPUSCULAR HGB 29.7 pg (27.0-31.0); MEAN CORPUSCULAR HGB CONC 33.3 g/dl (33.0-37.0); MEAN PLATELET VOLUME 10.2 fl (9.6-12.3); MONO # 0.5 10*3/uL (0.1-1.0); NEUT # 3.4 10*3/uL (2.3-7.9); NEUT % 55.9 % (47.0-73.0); PLATELET COUNT AUTOMATED 286 10*3/uL (130-400); RED BLOOD COUNT 4.35 10*6/uL (4.10-5.10); RED CELL DISTRI WIDTH 13.8 % (0-14.5)
[2019-05-15 21:07] LABS: ALBUMIN 3.6 gm/dl (3.1-4.5); ALKALINE PHOSPHATASE 85 U/L (45-117); BUN 10 mg/dl (7-24); CHLORIDE 107 mmol/L (98-107); CREATININE 0.88 mg/dL (0.55-1.02); LIPASE 94 U/L (73-393); POTASSIUM 3.4 mmol/L (3.5-5.1); SGOT/AST 20 IU/L (3-35); SGPT/ALT 26 U/L (12-78); SODIUM 141 mmol/L (136-145); TOTAL PROTEIN 7.2 gm/dL (6.4-8.2)
[2019-05-15 21:09] LABS: TROPONIN I < 0.015 ng/ml (<0.045)
[2019-05-15 21:20] VITALS: BP 102/74
[2019-05-15 21:50] VITALS: BP 102/53
[2019-05-16] VITALS (13 sets, daily range): BP systolic 88–113; BP diastolic 45–64
--- NOTE | 2019-05-16 05:07 | NUR ---
REPORT RECEIVED FROM MANUEL BETANCOURT.PT RESTING QUIETLY.VITALS STABLE.--NEO MOORE RN
[2019-05-16 06:54] LABS: BASO # 0.1 10*3/uL (0.0-0.1); BASO % 1.3 % (0.0-1.0); EOS # 0.2 10*3/uL (0.0-0.4); EOS % 4.4 % (1.0-4.0); HEMATOCRIT 35.7 % (37.0-47.0); HEMOGLOBIN 11.4 g/dl (12.0-16.0); LYMPH # 1.5 10*3/uL (1.3-4.4); LYMPH % 26.8 % (27.0-41.0); MEAN CELL VOLUME 90.8 fl (81.0-99.0); MEAN CORPUSCULAR HGB CONC 31.9 g/dl (33.0-37.0); MEAN PLATELET VOLUME 10.2 fl (9.6-12.3); MONO # 0.6 10*3/uL (0.1-1.0); MONO % 10.4 % (3.0-9.0); NEUT # 3.1 10*3/uL (2.3-7.9); NEUT % 56.7 % (47.0-73.0); PLATELET COUNT AUTOMATED 252 10*3/uL (130-400); RED BLOOD COUNT 3.93 10*6/uL (4.10-5.10); RED CELL DISTRI WIDTH 14.1 % (0-14.5); WHITE BLOOD COUNT 5.5 10*3/uL (4.8-10.8)
--- NOTE | 2019-05-16 06:54 | NUR ---
PT ASSISTED UP TO BR TO VOID.MEDICATED PER EMAR AT THIS TIME FOR C/O HEADACHE--NEO MOORE RN
[2019-05-16 07:23] LABS: CHLORIDE 112 mmol/L (98-107); POTASSIUM 3.8 mmol/L (3.5-5.1); SODIUM 144 mmol/L (136-145)
[2019-05-16 07:41] LABS: BUN 8 mg/dl (7-24); CHOLESTEROL 175 mg/dL (<200); CREATININE 0.81 mg/dL (0.55-1.02); HDL CHOLESTEROL 44 mg/dl (40-60); LDL CHOLESTEROL 103 mg/dL (9-159); PHOSPHOROUS 3.3 mg/dL (2.5-4.9); TRIGLYCERIDES 139 mg/dl (<150); VLDL CHOLESTEROL 28 mg/dL (6-40)
--- NOTE | 2019-05-16 08:40 | NUR ---
A 54, admitted to 5E, under the services of NEELAM Azevedo DO with a diagnosis of CHEST PAIN. Chief complaint is NAUSEA, HEADACHE. Patient arrived via ambulance from ER. Monitor applied. Initial assessment completed. Vital signs taken and recorded. NEELAM AZEVEDO DO notified of admission to the unit. Orders received. See assessment for past medical history, medications and allergies. Patient and/or family oriented to unit. [facility] visitation policy reviewed. Clothing/patient valuable form completed. JEISON ALMANZA
--- NOTE | 2019-05-16 09:00 | NUR ---
Data Analytics Analyst in to talk to patient. Patient states lives at home with her . There are 40 steps in the home. Physician: Jacobo Albarado [facility] Home health services: none Patient's level of ADLs: INDEPENDENT Patient has working utilities: yes DME: none Follow-up physician's appointment after d/c: will be made by the hospitalist nurse director upon discharge Does patient want to access PORTAL?: no Discharge plan discussed with patient. She lives at home with her and currently has 40 steps. She lives on the second floor apartment. She is working on moving to the new loft apartments at the end of the month. She is independent in her ADLs and ambulation. Discussed home health care services and she denies any home needs at this time. When medically stable she will be discharged to home. TINO BEARD
--- NOTE | 2019-05-16 18:40 | NUR ---
PT COMPLAINS OF HEADACHE AT THIS TIME. ONE TIME DOSE OF TORADOL GIVEN. WILL MONITOR FOR EFFECTIVENESS.
--- NOTE | 2019-05-16 20:40 | NUR ---
DR. HAWKINS NOTIFIED OF PT'S CONTINUED C/O FRONTAL H/A RADIATING INTO EYES W/LIGHT AND SOUND INCREASING EFFECT AND TORADOL/TYLENOL INEFFECTIVE. TO TEJA HUDDLESTON.
--- NOTE | 2019-05-16 21:05 | NUR ---
PT MEDICATED W/FIORICET FOR C/O H/A. PT ADVISED TO NOTIFY THIS NURSE IF PAIN MED IS INEFFECTIVE. PT AGREEABLE.
--- NOTE | 2019-05-16 22:39 | NUR ---
DR. NICOLAS NOTIFIED OF PT'S CONTINUED C/O H/A. DR. HAWKINS TO COME ASSESS PT.
--- NOTE | 2019-05-16 22:50 | NUR ---
PT LEFT FLOOR W/PA FOR STAT CT OF HEAD.
[2019-05-17] VITALS: BP 117/56
--- NOTE | 2019-05-17 00:33 | NUR ---
DR. HAWKINS NOTIFIED OF NEGATIVE HEAD CT.
--- NOTE | 2019-05-17 04:50 | NUR ---
24 HR chart check completed.
--- NOTE | 2019-05-17 06:10 | NUR ---
PT STATES THAT SHE GOT SOME SLEEP LAST NIGHT AND H/A HAS EASED UP.
[2019-05-17 06:43] LABS: BASO # 0.1 10*3/uL (0.0-0.1); BASO % 1.1 % (0.0-1.0); EOS # 0.3 10*3/uL (0.0-0.4); EOS % 5.9 % (1.0-4.0); HEMOGLOBIN 11.6 g/dl (12.0-16.0); LYMPH # 1.5 10*3/uL (1.3-4.4); LYMPH % 35.1 % (27.0-41.0); MEAN CELL VOLUME 90.2 fl (81.0-99.0); MEAN CORPUSCULAR HGB 29.9 pg (27.0-31.0); MEAN CORPUSCULAR HGB CONC 33.1 g/dl (33.0-37.0); MEAN PLATELET VOLUME 10.6 fl (9.6-12.3); MONO # 0.4 10*3/uL (0.1-1.0); MONO % 9.6 % (3.0-9.0); NEUT # 2.1 10*3/uL (2.3-7.9); NEUT % 48.1 % (47.0-73.0); PLATELET COUNT AUTOMATED 255 10*3/uL (130-400); RED BLOOD COUNT 3.88 10*6/uL (4.10-5.10); WHITE BLOOD COUNT 4.4 10*3/uL (4.8-10.8)
[2019-05-17 07:25] LABS: CHLORIDE 112 mmol/L (98-107); POTASSIUM 3.7 mmol/L (3.5-5.1); SODIUM 143 mmol/L (136-145)
[2019-05-17 07:32] LABS: BUN 10 mg/dl (7-24); CREATININE 0.73 mg/dL (0.55-1.02)
[2019-05-17 07:50] VITALS: BP 138/84
--- NOTE | 2019-05-17 08:00 | NUR ---
PT AWAKE ALERT AND ORIENTED. STATES THAT HER HEADACHE IS GONE. NO COMPLAINTS OF PAIN. NO S/S OF SOB OR DISTRESS. BED IN LOWEST LOCKED POSITION AND CALL LIGHT WITHIN REACH. WILL CONTINUE TO MONITOR.
--- NOTE | 2019-05-17 09:00 | NUR ---
Marine Oiler in to see patient. No new needs or request at this time. She denies any home needs. When medically stable she will be discharged to home.
[2019-05-17 11:57] VITALS: BP 130/82
[2019-05-17] MEDS ORDERED: Oscal,Oyster S500 MG PO (12:25)
--- NOTE | 2019-05-17 13:50 | NUR ---
Discharge instructions reviewed with patient/family. Patient receptive and verbalizes understanding. Follow-up care arranged. Written instructions given to patient/family. JEISON ALMANZA
[2019-06-21] MEDS ORDERED: HYDROXYZINE PAM25 M1 PO (09:06)
[2019-06-21] MEDS ORDERED: VIIBRYD40 PO (09:06)
[2019-06-21] MEDS ORDERED: QUETIAPINE FUMA50 M1 PO (09:06)
[2019-07-02] MEDS ORDERED: SEPTDS PO (22:18)
[2019-07-02] MEDS ORDERED: ZOFRAN4 MG PO (22:18)
== END 2019-05-17 13:50 | disposition home or self-care (01) | DRG 206 ==
LOC: ED 19:28 → EDHOLD 22:51 → 5E 22:51
PROVIDERS: Emergency Medicine Emergency Medical Services; Internal Medicine; Student in an Organized Health Care Education/Training Program; ADMIT Internal Medicine
DX: M94.0 Chondrocostal junction syndrome [Tietze] (principal); K52.1 Toxic gastroenteritis and colitis; F41.9 Anxiety disorder, unspecified; K21.9 Gastro-esophageal reflux disease without esophagitis; D72.810 Lymphocytopenia; E87.8 Other disorders of electrolyte and fluid balance, not elsewhere classified; R31.1 Benign essential microscopic hematuria; R79.82 Elevated C-reactive protein (CRP); R82.71 Bacteriuria; F41.1 Generalized anxiety disorder; F60.3 Borderline personality disorder; A08.4 Viral intestinal infection, unspecified; F34.0 Cyclothymic disorder; E03.9 Hypothyroidism, unspecified; R13.10 Dysphagia, unspecified; R00.1 Bradycardia, unspecified; E55.9 Vitamin D deficiency, unspecified; E66.9 Obesity, unspecified; E78.5 Hyperlipidemia, unspecified; D64.9 Anemia, unspecified; F31.9 Bipolar disorder, unspecified; I95.9 Hypotension, unspecified; T36.8X5A Adverse effect of other systemic antibiotics, initial encounter; Y92.89 Other specified places as the place of occurrence of the external cause; Z82.49 Family history of ischemic heart disease and other diseases of the circulatory system; Z88.1 Allergy status to other antibiotic agents; Z88.0 Allergy status to penicillin; Z88.8 Allergy status to other drugs, medicaments and biological substances; Z91.5 Personal history of self-harm; Z87.440 Personal history of urinary (tract) infections; Z90.49 Acquired absence of other specified parts of digestive tract; Z90.710 Acquired absence of both cervix and uterus; Z80.1 Family history of malignant neoplasm of trachea, bronchus and lung; Z79.899 Other long term (current) drug therapy; Z68.35 Body mass index [BMI] 35.0-35.9, adult

== ENCOUNTER 2019-05-30 18:54 | Emergency (ER) | payer OTHER, MEDICAID ==
[~2019-05-30] VITALS: Ht 152.4 cm; Wt 83.0 kg
[~2019-05-30 18:54] MED LIST changes: +Oscal,Oyster S500 MG PO
[2019-05-30] MEDS ORDERED: PATANOL 0.1% 5 M5 ML OPH (19:13)
[2019-06-21] MEDS ORDERED: VIIBRYD40 PO (09:06)
[2019-06-21] MEDS ORDERED: QUETIAPINE FUMA50 M1 PO (09:06)
[2019-06-21] MEDS ORDERED: HYDROXYZINE PAM25 M1 PO (09:06)
[2019-07-02] MEDS ORDERED: SEPTDS PO (22:18)
[2019-07-02] MEDS ORDERED: ZOFRAN4 MG PO (22:18)
== END 2019-05-30 19:28 | disposition home or self-care (01) ==
LOC: ED 18:54
DX: J30.9 Allergic rhinitis, unspecified (principal); Z79.899 Other long term (current) drug therapy; Z88.0 Allergy status to penicillin; Z88.1 Allergy status to other antibiotic agents; Z88.8 Allergy status to other drugs, medicaments and biological substances

== ENCOUNTER 2019-06-03 10:17 | Inpatient (IN) | payer OTHER, MEDICAID ==
[~2019-06-03] VITALS: Ht 152.4 cm; Wt 83.0 kg
--- NOTE | ~2019-06-03 | PR ---
[place], [place] PROGRESS NOTE NAME: DANIEL HAMMONDS UNIT #: [id number] ROOM: 311 DOCTOR: DELTA MARCUS MD BIRTHDATE: [birth year] DOS: 06/06/2019 INTERVAL NOTE CHIEF COMPLAINT: "I really want to be on the Trintellix, Cymbalta has never worked for me." SUMMARY OF THE VISIT: The patient was interviewed as she was sitting, eating her breakfast in the dining area. She engaged readily in conversation with me reporting that she did come to the hospital because she was feeling overwhelmingly depressed with suicidal thoughts. She had stated that she was on Trintellix 20 mg a day and that this was helping somewhat and that she and her outpatient provider had talked about increasing it to 30 mg a day, however, she was to get a new outpatient provider who felt uncomfortable with increasing the Trintellix to 30 mg a day until she had an opportunity to talk to Melissa Claros. In this period of time that I need to wait for it. She found herself spiraling into a depressive episode and came to the hospital. She reports that she is disappointed that the nurse practitioner over the weekend stopped the Trintellix in lieu of Cymbalta stating that she had been on Cymbalta before and it was totally ineffective even when augmented with an atypical antipsychotic. We discussed a treatment plan to restart the Trintellix and push forward and she nodded in approval. MENTAL STATUS EXAMINATION: She is alert and oriented. Mood does seem to be overwhelmingly depressed. Affect is flat, blunted, and constricted. She denies suicidal thoughts now stating that she is hoping she can get help. There is no hypomania or luz. There are no gross psychotic symptoms. Memory is fully intact. PLAN: I will discontinue Cymbalta. I will start Trintellix 20 mg in the morning, this morning and plan to increase to 30 mg in the morning, if tolerated in the morning. Routine screening examination shows her to have a low folic acid level of 5.02. I will start folic acid with B complex to augment. We will continue to engage in individual and hernandez milieu activity, returning then to the least restrictive environment when psychiatrically stable. [place], [place] PROGRESS NOTE NAME: DANIEL HAMMONDS UNIT #: [id number] ROOM: [facility] DOCTOR: DELTA MARCUS MD BIRTHDATE: [birth year] DELTA MARCUS MD CM:ABELARDO 0 [id number] DELTA MARCUS MD 06/06/19 2214 interface
--- NOTE | ~2019-06-03 | DS ---
[place], [place] DISCHARGE SUMMARY NAME: DANIEL HAMMONDS UNIT #: [id number] ROOM: 315 DOCTOR: DELTA MARCUS MD BIRTHDATE: [birth year] DOS: 06/08/2019 CHIEF COMPLAINT: "I still feel like I want to hurt myself." HISTORY OF PRESENT ILLNESS: This is a 54-year-old white female with a long history of bipolar disorder who presented to the Emergency Room at [facility] with a chief complaint of depression with suicidal thoughts and a plan. The patient has stated she wanted to overdose on her pills. She has had attempted overdoses in the past. The patient was last admitted to the [facility] in 01/2019. Subsequently upon that time, she was following with her outpatient provider and stated that she was doing well with the Trintellix 20 mg a day and her provider was going to increase it to 30, but never did. She became increasingly despondent after this decision was made and felt that life was not worth living. She is admitted now to rule out organic factors, to stabilize on medication, to assess lethality and then to determine the least restrictive environment to which she could be sent. SUMMARY OF HOSPITAL COURSE: The patient was admitted to the unit where initially she was started on Cymbalta; however, after discussing the case with me the patient was switched back from the Cymbalta to Trintellix 20 mg a day. Subsequently, then increasing a day later to 30 after she tolerated this well without side effects and the patient did state that she felt much better with the Trintellix on board, she voiced positive plans for the future. She had followup set with comprehensive psychiatric services. She was discharged then back home. MENTAL STATUS AT DISCHARGE: She is alert and oriented. Mood does seem to be euthymic. Affect appropriate. There is no luz, hypomania or psychosis. Short term, intermediate, and long-term memory are intact. FINAL DIAGNOSES: Bipolar type 2 and borderline personality disorder. DISPOSITION: The patient is returning home. All of her prescriptions have been e-scribed to [facility]. She will follow up with comprehensive psychiatric services in [place]. [place], [place] DISCHARGE SUMMARY NAME: DANIEL HAMMONDS UNIT #: [id number] ROOM: [facility] DOCTOR: DELTA MARCUS MD BIRTHDATE: [birth year] DELTA MARCUS MD CM:PIERRE [id number] DELTA MARCUS MD 06/08/19 1649 interface
--- NOTE | ~2019-06-03 | PR ---
[place], [place] PROGRESS NOTE NAME: DANIEL HAMMONDS UNIT #: [id number] ROOM: 311 DOCTOR: FELICIA AVITIA CNP BIRTHDATE: [birth year] DOS: 06/05/2019 CHIEF COMPLAINT: "I am okay." SUMMARY OF VISIT: The patient was interviewed as she is lying in bed. She was sleeping whenever I entered the room; however, she did arouse easily when I called her name. The patient reports that she slept well. She reports that her appetite is good. She reports that her mood is better than whenever she first came to the unit. However, she still feels somewhat depressed. She denies any suicidal ideation. The patient questions why she is no longer taking her Trintellix because this was a medication that she was taking for depression at home. Staff reports that the patient has been cooperative, taking medications as prescribed. No behaviors. She did have a p.r.n. Vistaril at 2120 hours yesterday to help with sleep. The patient reports that she normally takes p.r.n. Vistaril at home. MENTAL STATUS EXAMINATION: The patient was alert and oriented to person, place and time. She was pleasant and cooperative with me. No luz or hypomania noted. No delusions or paranoia noted. No psychotic symptoms noted. No auditory or visual hallucinations noted. The patient's mood does remain depressed. Her affect is congruent with mood. PLAN: Increase the patient's Cymbalta to 60 mg at bedtime for depression. We will monitor the patient for effectiveness as well as to monitor for side effects. Continue to encourage the patient to participate in individual and hernandez milieu activity. Continue fall and safety precautions. Plan is to return the patient to the least restrictive environment when she is considered psychiatrically stable. Felicia Avitia CNP CM:PNTRANS [phone] FELICIA AVITIA CNP 06/05/192018 interface
--- NOTE | ~2019-06-03 | WRIGHTHP ---
[place], [place] PATIENT HISTORY AND PHYSICAL EXAM NAME: DANIEL HAMMONDS [facility] #: [id number] UNIT #: [id number] ROOM: 311 DOCTOR: FELICIA ROSS CNP BIRTHDATE: [birth year] DOS: 06/04/2019 CHIEF COMPLAINT: "I still feel like "I want to hurt myself." HISTORY OF PRESENT ILLNESS: This is a 54-year-old white female with a history of bipolar disorder who presented to the Emergency Department with complaints of depression and suicidal thoughts. The patient stated that she wanted to harm herself and that she had a plan to overdose on pills. The patient reported that she had tried to overdose in the past. She reported that she was admitted to the U at [facility] in January 2019. The patient states that she wants to be admitted again. Denied any alcohol or drug use. The patient reported to staff that she takes Trintellix, Seroquel and Vistaril. The patient does see Tatiana Martin for therapy in a private office; it was decided once the patient was medically cleared to admit her to the U to rule out any further organic factors and to attempt to stabilize her on her medication. The patient will be encouraged to engage in individual and hernandez milieu activity with plans to return the patient to the least restrictive environment once she is considered psychiatrically stable. Due to the patient's suicide risk being 73 she is on q. 15-minute checks. She does continue to isolate in her room only coming out for meals and snacks. PAST MEDICAL HISTORY: Remarkable for allergic rhinitis, anxiety, bipolar 1 disorder, borderline personality disorder, bradycardia, chest pain, cyclothymic disorder, diarrhea, dysphagia, generalized anxiety disorder, GERD, hematuria, hyperlipidemia, hyperchloremia, hypotension, hypothyroidism, lymphopenia, major depressive disorder, nausea, normocytic anemia, obesity and vitamin D deficiency. SOCIAL HISTORY: The patient does not drink alcohol. She does not use illicit drugs and she does not use tobacco products. STRENGTHS: The patient is ambulatory and has good verbal skills. WEAKNESSES: She has poor coping skills and major depression. MENTAL STATUS: The patient is alert and oriented to person, place and time. She was pleasant and cooperative with me. No overt luz or hypomania noted. No delusions or paranoia noted. No psychotic symptoms noted. No auditory or visual hallucinations noted. The patient's mood is depressed. Her affect is flat. The patient is lying in bed during our interview. Her speech was clear. Eye contact intermittent. Judgment and insight fair. The patient reports that she still wants to hurt herself; however, she has no current plan. DIAGNOSIS: Major depressive disorder with suicidal ideation. PLAN: I will continue the patient's Seroquel 50 mg at bedtime as well as her Vistaril 50 mg 3 times a day as needed. "I don't see that the patient was on Trintellix according to her home medication list despite her reports that she was on that, so I am going to start Cymbalta 30 mg at bedtime for depression with plans of increasing that to 60. We will continue to encourage the patient [place], [place] PATIENT HISTORY AND PHYSICAL EXAM NAME: DANIEL HAMMONDS UNIT #: [id number] ROOM: [facility] DOCTOR: FELICIA ROSS CNP BIRTHDATE: [birth year] to engage in hernandez and milieu activity. Continue fall and safety precautions. Plan will be to return the patient to the least restrictive environment when she is considered psychiatrically stable. Felicia Ross CNP CM:HISPHYS:PATIENT HISTORY AND PHYSICAL EXAMINATION [phone] FELICIA ROSS CNP 06/04/19 1119 interface
--- NOTE | ~2019-06-03 | EKG ---
[place], [place] ELECTROCARDIOGRAM REPORT NAME: DANIEL HAMMONDS UNIT #: [id number] ROOM: 311 DOCTOR: DIMAS DRAFT REPORT BIRTHDATE: [birth year] [facility] Test Date: 2019-06-03 Test Time: 11:02:22 Pat Name: DANIEL HAMMONDS Department: Room: 311 Gender: F Interrelated Special Education Teacher: Zayra Brown : 1965 Requested By: ULI SEGAL Order Number: [id number] Reading MD: Rocky Fitzgerald MD Measurements Intervals [place] Rate: 60 P: 8 MA: 158 QRS: 11 QRSD: 101 T: 41 QT: 433 QTc: 433 Interpretive Statements Sinus rhythm Compared to ECG 05/16/2019 02:04:57 No significant changes Electronically Signed On 06-05-2019 11:39:22 PDT by Rocky Fitzgerald MD CM:EKGRPT:ELECTROCARDIOGRAM REPORT [id number] ULI COCHRAN DRAFT REPORT ULI SEGAL MD
--- NOTE | ~2019-06-03 | PN ---
[place], [place] PROGRESS NOTE NAME: DANIEL HAMMONDS UNIT #: [id number] ROOM: 315 DOCTOR: DELTA MARCUS MD BIRTHDATE: [birth year] DATE: 06/07/19 ADDENDUM: Resident note reviewed. Agree with observations, recommendations, and overall treatment plan. DELTA MARCUS MD CM:PNTRANS [id number] DELTA MARCUS MD 06/29/19 1330 MARY PEREIRA MIS.LLR
[~2019-06-03 10:17] MED LIST changes: +PATANOL 0.1% 5 M5 ML OPH
[2019-06-03 10:42] LABS: BASO # 0.1 10*3/uL (0.0-0.1); BASO % 1.3 % (0.0-1.0); EOS # 0.3 10*3/uL (0.0-0.4); EOS % 4.8 % (1.0-4.0); HEMATOCRIT 38.6 % (37.0-47.0); HEMOGLOBIN 12.7 g/dl (12.0-16.0); LYMPH # 2.1 10*3/uL (1.3-4.4); LYMPH % 37.1 % (27.0-41.0); MEAN CORPUSCULAR HGB 29.6 pg (27.0-31.0); MEAN CORPUSCULAR HGB CONC 32.9 g/dl (33.0-37.0); MEAN PLATELET VOLUME 10.4 fl (9.6-12.3); MONO # 0.5 10*3/uL (0.1-1.0); MONO % 9.6 % (3.0-9.0); NEUT # 2.6 10*3/uL (2.3-7.9); NEUT % 46.8 % (47.0-73.0); PLATELET COUNT AUTOMATED 274 10*3/uL (130-400); RED BLOOD COUNT 4.29 10*6/uL (4.10-5.10); RED CELL DISTRI WIDTH 14.2 % (0-14.5); WHITE BLOOD COUNT 5.6 10*3/uL (4.8-10.8)
[2019-06-03 10:58] LABS: ALBUMIN 3.5 gm/dl (3.1-4.5); ALKALINE PHOSPHATASE 73 U/L (45-117); BUN 13 mg/dl (7-24); CHLORIDE 109 mmol/L (98-107); CREATININE 1.06 mg/dL (0.55-1.02); ETHYL ALCOHOL < 3.0 mg/dl (<3); POTASSIUM 3.7 mmol/L (3.5-5.1); SGOT/AST 18 IU/L (3-35); SGPT/ALT 20 U/L (12-78); SODIUM 144 mmol/L (136-145); TOTAL PROTEIN 6.9 gm/dL (6.4-8.2)
[2019-06-03 11:06] LABS: THYROID STIM HORMONE (HS) 0.675 uIU/ml (0.358-4.75)
[2019-06-03 11:07] LABS: BILIRUBIN NEGATIVE (NEGATIVE); BLOOD 1+ (NEGATIVE); CLARITY SL CLOUDY (CLEAR); COLOR YELLOW (YELLOW); GLUCOSE NEGATIVE (NEGATIVE); KETONE NEGATIVE (NEGATIVE); LEUKO ESTERASE 1+ (NEGATIVE); NITRITE NEGATIVE (NEGATIVE); SPECIFIC GRAVITY 1.025 (1.005-1.030); UROBILINOGEN 0.2 E.U./dl (0.2-1.0)
[2019-06-03 11:15] LABS: BACTERIA 4+; EPITHELIAL CELLS 16-20; MUCOUS 1+
[2019-06-03 11:18] LABS: URINE AMPHETAMINES < 1000 (1000ng/ml); URINE BARBITURATES < 200 (200ng/ml); URINE BENZODIAZEPINES < 200 (200ng/ml); URINE CANNABINOIDS (THC) < 50 (50ng/ml); URINE COCAINE < 300 (300ng/ml); URINE METHADONE < 300 (300ng/ml); URINE OPIATES < 300 (300ng/ml); URINE PHENCYCLIDINE < 25 (25ng/ml)
[2019-06-03 12:11] VITALS: BP 142/68
--- NOTE | 2019-06-03 12:12 | NUR ---
PT REMAINS CALM AND COMPLIANT, NO VOICED COMPLAINTS, ALL TESTING EXCEPT CHEST XRAY HAVE RETURNED. AWAITING SOCIAL SERVICE CONSULT AFTER THAT. JOSELYN GRIDER HAS BEEN NOTIFIED BY DR SEGAL.
--- NOTE | 2019-06-03 12:28 | NUR ---
ADMISSION ORDER NOW FOR [facility]
--- NOTE | 2019-06-03 13:00 | NUR ---
PER HERNANDEZ Bell [facility] IP APPROVED FOR 3 DAYS WITH NEXT REVIEW DATE ON WEDNESDAY 06/06 WITH February AT [phone]. AUTH NUMBER IS [id number].
--- NOTE | 2019-06-03 13:15 | NUR ---
DANIEL HAMMONDS a 54 year old F admitted via wheel chair from the ADMITTING as a voluntary admission. Arrived on unit at 1315. ALLERGIES: PCN, CLINDAMYCIN,AMOXICILLIN, ZOLOFT, VANCO, REMERON, LUTUDA, BREXIPRAZOLE. Vital signs are: 97.7-60-18 108/62. The client signed the following forms with stated understanding: Authorization For The Release of Medical Information, Clothing List, Consent to Voluntary Admission and Hospitalization, Consent and Release Forms/Receipt of Rights, Acknowledgement of Advance Directive Information, Behavioral Health Consent Form, and Informed Consent of Medications. Admitted under the services of Dr. AMRIT IRELAND,[facility]. A search was conducted and hazardous articles were removed. Client was oriented to the unit. JOSELYN VALDES
[2019-06-03] MEDS ORDERED: VISTARIL50 MG PO (13:45)
[2019-06-03 13:49] VITALS: BP 108/62
--- NOTE | 2019-06-03 13:52 | NUR ---
PATIENT SIUCIDE IDEATION SCORE IS 73, DR. MARCUS NOTIFIED. KEEP PATIENT ON Q 15 MINUTE SAFETY CHECKS.
[2019-06-03 13:54] VITALS: BP 108/62
--- NOTE | 2019-06-03 13:54 | NUR ---
DR. TRAN NOTIFIED OF NEW ADMISSION. MEDICAITONS AND DAIGNOSIS LIST UPDATED FOR REVIEW. PATIENT WILL BE UNDER THE CARE OF DR. PENA.
--- NOTE | 2019-06-03 14:13 | NUR ---
DR. TRAN NOTIFIED OF MANUAL BP 108/62 WITH RADIAL OF 60.
--- NOTE | 2019-06-03 14:25 | NUR ---
DR. BELLE ON FLOOR TO ASSESS PT, UPDATE PROVIDED. NOTIFIED OF LABS AND URINE THAT WAS DONE IN THE ER. DR. BELLE STATED TO ENCOURAGE TO DRINK MORE FLUIDS. NO NEW ORDERS AT THIS TIME.
--- NOTE | 2019-06-03 15:29 | NUR ---
PM GROUP PT HAD JUST BEEN ADMITTED TO THE UNIT AND HAS NOT BEEN ASSESSED OR GOALS SET. SPENT SOME TIME SPEAKING WITH PT AND LEFT HER WITH [facility]. WILL ASSESS ON THURSDAY
--- NOTE | 2019-06-03 15:56 | NUR ---
While meeting with pt this afternoon, pt stated that she feels suicidal. Upon further discussion, pt denies any stressors that would be linked to her suicidal thoughts. Pt spoke of being newly (03/18) and plans to move into another home. Pt reports that both of these events are very positive. Pt reports that her Cornelius is very supportie.
[2019-06-03 19:59] VITALS: BP 102/60
--- NOTE | 2019-06-03 21:52 | NUR ---
Patient alert and oriented x4. No signs of any memory deficits noted. Denies SI/HI at this time. Encouraged patient to tell staff when suicidal thoughts occur. No signs of any hallucinations/delusions noted at this time. Patient compliant with medications without any difficulty. Provided 1:1 with patient for emotional support. Patient states "I just want to go to bed and go to sleep right now." Patient isolative to room except for meals and snacks. Plan to encourage to talk to staff when having suicidal thoughts for safety and encourage medication compliance. Also continue to provide 1:1 for emotional support. Suicidal precautions continued. Q 15 minute safety checks continued and maintained. See [facility] flowsheet for further documentation.
--- NOTE | 2019-06-04 00:20 | NUR ---
24 HR chart check completed.
--- NOTE | 2019-06-04 05:30 | NUR ---
Patient slept approx. 7 hours throughout shift. Suicidal precaution continued. Q 15 minute safety checks continued and maintained.
[2019-06-04 07:14] LABS: THYROID STIM HORMONE (HS) 0.583 uIU/ml (0.358-4.75)
[2019-06-04 07:48] LABS: VITAMIN D, 25-HYDROXY 32.8 ng/mL (30-100)
[2019-06-04 08:00] VITALS: BP 101/65
--- NOTE | 2019-06-04 08:01 | NUR ---
SHANIQUA DUARTE ON UNIT TO ASSESS PT
--- NOTE | 2019-06-04 09:15 | NUR ---
PHYSICAL THERAPY PT SCREEN COMPLETED ON [facility] AND PATIENT IS FOUND TO BE UP AD ANDRES AND (I) IN ROOM AND UNIT WITH NO AD WITH NO APPARENT PT NEEDS INDICATED AT THIS TIME. STAFF REPORTS SHE IS UP WITHOUT ISSUE AND OBSERVED HER TODAY TO BE (I) WITH ALL MOBILITY WITH GOOD SAFETY. NO PT SERVICES RECOMMENDED AT THIS TIME , THANK YOU FOR REFERRAL LORI MCBRIDE PT
--- NOTE | 2019-06-04 10:22 | NUR ---
ON UNIT TO ASSESS PT, UPDATE PROVIDED.
--- NOTE | 2019-06-04 13:41 | NUR ---
P: ISOLATIVE TO ROOM I: ENCOURAGED PT TO INCREASE SOCIALIZATION WITH PEERS AND STAFF. ENCOURAGED PT TO INCREASE TIME OUT OF ROOM AND ATTEND/PARTICIPATE IN GROUPS AND ACTIVITIES. 1:1 PROVIDED FOR THERAPEUTIC COMMUNICATION. ENCOURAGE MEDICATION COMPLIANCE. R: PT OUT OF ROOM FOR MEALS AND VISITATIONS. MEDICATION COMPLIANT WITHOUT DIFFICULTY. P: CONTINUE TO ENCOURAGE MEDICATION COMPLAINCE, INCREASED SOCIALIZATION, AND INCREASED TIME OUT OF ROOM. ENCOURAGE ATTENDANCE/PARTICIPATION IN ACTIVITIES. SEE [facility] FLOWSHEET FOR SPECIFIC MONITORING. APPETITIE IS GOOD. NO HALLUCINATIONS OR DELUSIONS NOTED. PT DENIED SUICIDAL IDEATIONS. CONTRACTED FOR SAFETY. SHOWERED THIS SHIFT. CONTINENT OF BOWEL AND BLADDER. Q15 MINUTE SAFETY CHECKS MAINTAINED. SUICIDAL PRECAUTIONS MAINTAINED. ENCOURAGED INCREASED FLUID INTAKE.
[2019-06-04 18:44] VITALS: BP 121/67
--- NOTE | 2019-06-04 18:48 | NUR ---
PT REQUESTED TO SPEAK TO A NURSE. WHEN THIS RN AND ANOTHER RN ENTERED ROOM. PT STATED SHE HAD A SORE AREA. PT'S RIGHT ABD IS ESCORIATED. DR BELLE NOTIFIED AND ORDERED [employer] CREAM.
--- NOTE | 2019-06-04 21:37 | NUR ---
24 HR chart check completed.
--- NOTE | 2019-06-04 23:20 | NUR ---
PATIENT IS ALERT AND ORIENTED X4. DENIES SI/HI AT THIS TIME. REMAINS ISO;ATIVE TO ROOM EXCEPT FOR SNACKTIME. IS PLEASANT WITH STAFF. ENCOURAGE 1:1 WITH STAFF FOR EMOTIONAL SUPPORT. ENCOURAGED TO TALK TO STAFF WHEN HAVING SUICIDAL THOUGHTS FOR EMOTIONAL SUPPORT. HAS BEEN MED COMPLIANT. NO HALLUCINATIONS OR DELUSIONS. CONTINUE WITH EVERY 15 MINUTE SAFETY CHECKS. SUICIDAL PRECAUTIONS CONTINUE.
--- NOTE | 2019-06-05 05:20 | NUR ---
PATIENT SLEPT MORE THAN 8 HOURS LAST NIGHT
[2019-06-05 07:36] VITALS: BP 110/66
--- NOTE | 2019-06-05 10:28 | NUR ---
/ CHRISTINA ON UNIT TO ASSESS PT, UPDATE PROVIDED.
--- NOTE | 2019-06-05 17:43 | NUR ---
P: ISOLATIVE TO ROOM I: ENCOURAGED PT TO INCREASE SOCIALIZATION WITH PEERS AND STAFF. ENCOURAGED PT TO INCREASE TIME OUT OF ROOM AND ATTEND/PARTICIPATE IN GROUPS AND ACTIVITIES. 1:1 PROVIDED FOR THERAPEUTIC COMMUNICATION. ENCOURAGE MEDICATION COMPLIANCE. R: PT OUT OF ROOM FOR MEALS AND VISITATIONS. MEDICATION COMPLIANT WITHOUT DIFFICULTY. P: CONTINUE TO ENCOURAGE MEDICATION COMPLAINCE, INCREASED SOCIALIZATION, AND INCREASED TIME OUT OF ROOM. ENCOURAGE ATTENDANCE/PARTICIPATION IN ACTIVITIES. SEE [facility] FLOWSHEET FOR SPECIFIC MONITORING. APPETITIE IS GOOD. NO HALLUCINATIONS OR DELUSIONS NOTED. PT DENIED SUICIDAL IDEATIONS. CONTRACTED FOR SAFETY. SHOWERED THIS SHIFT. CONTINENT OF BOWEL AND BLADDER. Q15 MINUTE SAFETY CHECKS MAINTAINED. SUICIDAL PRECAUTIONS MAINTAINED. ENCOURAGED INCREASED FLUID INTAKE.
[2019-06-05 20:00] VITALS: BP 117/59
--- NOTE | 2019-06-05 21:34 | NUR ---
24 HR chart check completed.
--- NOTE | 2019-06-05 23:45 | NUR ---
P-DEPRESSED & ISOLATIVE I-ENCOURAGE VENTILATION OF FEELINGS, ENCOURAGE PARTICIPATION IN UNIT ACTIVITIES, ENCOURAGE SOCIALIZATION, ASSESS SUICIDAL FEELINGS, ADMINISTER MEDICATIONS, MONITOR SLEEP R-MOOD IS MILDLY DEPRESSED WITH APPROPRIATE SMILING. ALERT & ORIENTED X 4. PT CAME TO THE DINING ROOM & KEPT TO HERSELF WHILE SHE ATE SNACK. SHE CALLED HER & SPOKE TO HIM BRIEFLY. DENIES SUICIDAL FEELINGS & CONTRACTS FOR SAFETY. STATED SHE IS FEELING A LITTLE BETTER. COMPLIANT TAKING HS MEDICATIONS WHOLE. SHE IS AMBULATORY & INDEPENDENT & ABLE TO MAKES HER NEEDS KNOWN. P-CONTINUE TO MONITOR & PROVIDE PHYSICAL ASSISTANCE & EMOTIONAL SUPPORT.
--- NOTE | 2019-06-06 04:56 | NUR ---
PT HAS SLEPT PAST 2214 WITH 1 BRIEF AWAKENING TO GO TO THE BATHROOM.
[2019-06-06 07:47] VITALS: BP 109/56
--- NOTE | 2019-06-06 07:53 | NUR ---
PT AWAKE, ALERT, RESPS EASY AND EVEN ON ROOM AIR. ATE BREAKFAST IN DINING ROOM WITH PEERS. AMBULATED INDEPENDENTLY BACK TO BEDROOM. NO DISTRESS NOTED. ON UNIT TO SEE PT AT THIS TIME, UPDATE GIVEN.
--- NOTE | 2019-06-06 09:15 | NUR ---
RHEA FORM PRESS OPERATOR ON UNIT TO SEE PT AT THIS TIME.
--- NOTE | 2019-06-06 09:19 | NUR ---
PT REQUESTS TRINTELLIX BE GIVEN AT HS SHE WAS TAKING IT AT HOME. CALL PLACED TO REGARDING PT'S REQUEST. OK TO ADJUST ORDER TO HS PER .
[2019-06-06] MEDS ORDERED: OYSTER SHELL C500 M4 PO (09:37)
--- NOTE | 2019-06-06 09:42 | NUR ---
Treatment Plan meeting with Dr. Powell, RN, AT, SW and Math Tutor. Plan for discharge Thursday. Pt. will return home at discharge.
--- NOTE | 2019-06-06 11:43 | NUR ---
AM ASSESSMENT AND 1:1 PT WAS ASSESSED AND GOALS SET. PT WILL ATTEND AND PARTICIPATE IN GROUP THERAPY
--- NOTE | 2019-06-06 11:46 | NUR ---
P- ISOLATIVE/WITHDRAWN. MOOD APPEARS MILDLY DEPRESSED. AFFECT APPROPRIATE. I- ORIENTATION, MOOD AND BEHAVIOR ASSESSED. ASSESSED PT FOR SI/HI, INTENT OR PLAN. ASSESSED PT FOR S/S HALLLUCINATIONS, PARANOIA AND/OR DELUSIONS. MEDICATIONS ADMINISTERED PER PHYSICIAN'S ORDERS. ENCOURAGED PT TO ATTEND AND PARTICIPATE IN LUNA MILIEU GROUPS AND ACTIVITIES. R- PT IS ALERT AND ORIENTED X4. MEMORY APPEARS TO BE INTACT. RESPS EASY AND EVEN ON ROOM AIR. MOOD APPEARS MILDLY DEPRESSED WITH APPROPRIATE AFFECT. SPEECH IS WNL AND COHERENT, ABLE TO MAKE NEEDS KNOWN WITHOUT DIFFICULTY. PT DENIES SI/HI, INTENT OR PLAN. CONTRACTS FOR SAFETY. PT DENIES HALLUCINATIONS, NO RESPONSE TO INTERNAL STIMULI NOTED. NO PARANOIA OR DELUSIONS NOTED. PT IS CALM, PLEASANT AND COOPERATIVE. AMBULATORY WITH STEADY GAIT, INDEPENDENT WITH ADLS. PT REMAINS ISOLATIVE/WITHDRAWN TO ROOM. MEDICATION COMPLIANT WITHOUT DIFFICULTY. NO DISTRESS NOTED. P- PLAN TO CONTINUE CURRENT TREATMENT, CONTINUE TO MONITOR MOOD AND BEHAVIORS, PROVIDE APPROPRIATE REORIENTATION, REDIRECTION AND 1:1 NEEDED. CONTINUE TO ENCOURAGE MEDICATION COMPLIANCE WELL GROUP ATTENDANCE AND PARTICIPATION.
--- NOTE | 2019-06-06 14:28 | NUR ---
RHEA BETTING AGENCY MANAGER MADE AWARE PT REQUESTS TRICOR BE GIVEN AT NIGHT. ALSO MADE AWARE PT STATES SHE TAKES OSCAL AT HOME, ADDED TO HOME MEDS.
--- NOTE | 2019-06-06 15:37 | NUR ---
PM GROUP/LEISURE INTERESTS PT ATTENDED GROUP AND PARTICIPATED BY WORKING ON WORDSEARCH PUZZLES. PT SAT AT THE BACK OF THE ROOM AND KEPT TO HERSELF ON TASK. PT WOULD SPEAK WHEN SPOKEN TO AND WAS PLEASANT. PT EXPRESSED NO SUICIDAL IDEATIONS DURING GROUP
--- NOTE | 2019-06-06 15:53 | NUR ---
PER CALL FROM 2 ADDITIONAL DAYS APPROVED. NEXT REVIEW DATE 06/07/2019.
--- NOTE | 2019-06-06 18:36 | NUR ---
SHIFT CHART CHECK COMPLETED.
[2019-06-06 19:57] VITALS: BP 112/62
--- NOTE | 2019-06-06 23:13 | NUR ---
P-ISOLATIVE I-ENCOURAGE VENTILATION OF FEELINGS, ENCOURAGE PARTICIPATION IN UNIT ACTIVITIES, ENCOURAGE SOCIALIZATION, ASSESS SUICIDAL FEELINGS, ADMINISTER MEDICATIONS, MONITOR SLEEP R-MOOD APPEARS TO BE MILDLY DEPRESSED WITH APPROPRIATE SMILING. ALERT & ORIENTED X 4. KEEPS TO HERSELF & GOES TO HER ROOM. ATE SNACK. DENIES SUICIDAL FEELINGS & CONTRACTS FOR SAFETY. IS COMPLIANT TAKING MEDICATIONS WHOLE. SHE IS AMBULATORY & INDEPENDENT & ABLE TO MAKES HER NEEDS KNOWN. STATED SHE CAN NOT WAIT TO GO BACK HOME TO HER . P-CONTINUE TO MONITOR & PROVIDE PHYSICAL ASSISTANCE & EMOTIONAL SUPPORT.
--- NOTE | 2019-06-07 01:06 | NUR ---
24 HR chart check completed.
--- NOTE | 2019-06-07 06:04 | NUR ---
PT HAS SLEPT PAST 2129 WITH 1 BRIEF AWAKENING TO GO TO THE BATHROOM
[2019-06-07 07:25] VITALS: BP 110/62
--- NOTE | 2019-06-07 08:00 | NUR ---
PT AWAKE, ALERT AND VERBAL. PLEASANT. RESPS EASY AND EVEN ON ROOM AIR. EATING BREAKFAST IN DINING ROOM WITH PEERS AT THIS TIME. ON UNIT TO SEE PT AT THIS TIME, UPDATE PROVIDED.
--- NOTE | 2019-06-07 08:00 | NUR ---
Treatment Plan meeting with Dr. Powell, RN, AT, SW and Iron Handler. Plan for discharge Thursday. Pt. will return home with Follow up appointments.
--- NOTE | 2019-06-07 10:56 | NUR ---
P- LESS ISOLATIVE TODAY. PT STATES SHE IS FEELING WELL, DENIES FEELING SAD OR DEPRESSED. DENIES SUICIDIAL IDEATIONS. PT IS LOOKING FORWARD TO GOING HOME TOMORROW SHE DISCUSSED WITH . I- ORIENTATION, MOOD AND BEHAVIOR ASSESSED. ASSESSED PT FOR SI/HI, INTENT OR PLAN. ASSESSED PT FOR S/S HALLUCINATIONS, PARANOIA AND/OR DELUSIONS. MEDICATIONS ADMINISTERED PER PHYSICIAN'S ORDERS. ENCOURAGED PT TO ATTEND AND PARTICIPATE IN LUNA MILIEU GROUPS AND ACTIVITIES. R- PT IS ALERT AND ORIENTED X4. MEMORY APPERS TO BE INTACT. RESPS EASY AND EVEN ON ROOM AIR. MOOD APPEARS STABLE, AFFECT IS APPROPRIATE. SPEECH IS WNL AND COHERENT, ABLE TO MAKE NEEDS KNOWN WITHOUT DIFFICULTY. PT DENIES SI/HI, INTENT OR PLAN. PT DENIES HALLUCINATIONS, NO RESPONSE TO INTERNAL STIMULI NOTED. NO PARANOIA OR DELUSIONS NOTED. PT IS CALM, PLEASANT AND COOPERATIVE. LESS ISOLATIVE THAN PREVIOUS ASSESSMENTS. PT IS AMBULATORY WITH STEADY GAIT, INDEPENDENT WITH ADLS, CONTINENT OF BOWEL AND BLADDER. SHOWERED THIS AM INDEPENDENTLY. NO DISTRESS NOTED. P- PLAN TO CONTINUE CURRENT TREATMENT, CONTINUE TO MONITOR MOOD AND BEHAVIORS, PROVIDE APPROPRIATE REORIENTATION, REDIRECTION AND 1:1 NEEDED. CONTINUE TO ENCOURAGE MEDICATION COMPLIANCE WELL GROUP ATTENDANCE AND PARTICIPATION.
--- NOTE | 2019-06-07 11:24 | NUR ---
RHEA MOLDED FRAMES ASSEMBLER ON UNIT TO SEE PT AT THIS TIME. MADE AWARE PLAN FOR DISCHARGE IS TOMORROW.
--- NOTE | 2019-06-07 11:44 | NUR ---
AM GROUP THERAPY PT ATTENDED GROUP AND PARTICIPATED BY WORKING ON A WORDSEARCH. PT SAT AT A TABLE WITH NURSING STUDENTS RATHER THAN BY HERSELF PREVIOUSLY. PT EXPRESSED NO SUICIDAL IDEATIONS DURING GROUP
--- NOTE | 2019-06-07 13:53 | NUR ---
Family meeting held with pt and her Cornelius. Discussed pt's current status. Discussed pt's plan for when/if she feels suicidal again. Pt states that speaking to her counselor usually helps her overcome thoughts of self-harm. Discussed follow-up. Pt stated that she wants to continue services at [facility]. After family meeting, pt's spoke to this group underwriter alone. Cornelius voiced concern about pt's behaviors just prior to her suicidal ideations. Cornelius stated that pt "shuts down" and will not talk to him. Discussed ideas on what Cornelius can do when he observes pt behaving this way.
--- NOTE | 2019-06-07 14:54 | NUR ---
Patient unavailable to particiapte in occupational therapy eval at this time due to patient being in group therapy session. Will attempt occupational therapy eval at a later date. Mahad Trevino OTR/L
--- NOTE | 2019-06-07 15:40 | NUR ---
PM GROUP/MANICURES AND MUSIC PT ATTENDED GROUP AND PARTICIPATED BY DOING WORDSEARCH PUZZLES. PT SAT IN THE BACK OF THE ROOM AND KEPT TO HERSELF AND ON TASK. PT EXPRESSED NO SUICIDAL IDEATIONS DURING GROUP
--- NOTE | 2019-06-07 17:28 | NUR ---
SHIFT CHART CHECK COMPLETED.
--- NOTE | 2019-06-07 19:53 | NUR ---
24 HR chart check completed.
[2019-06-07 20:00] VITALS: BP 112/60
--- NOTE | 2019-06-07 23:04 | NUR ---
P-NO PROBLEMS. STABLE I-ENCOURAGE VENTILATION OF FEELINGS, ENCOURAGE PARTICIPATION IN UNIT ACTIVITIES, ENCOURAGE SOCIALIZATION, ASSESS SUICIDAL FEELINGS, ADMINISTER MEDICATIONS, MONITOR SLEEP R-MOOD STABLE. ALERT & ORIENTED X 4. SPENT THIS EVENING AMONG PEERS KEEPING QUIETLY TO HERSELF & WORKING ON PUZZLES. ATE SNACK. DENIES SUICIDAL FEELINGS & CONTRACTS FOR SAFETY. COMPLIANT TAKING MEDICATIONS WHOLE. SHE IS AMBULATORY & INDEPENDENT & ABLE TO MAKES HER NEEDS KNOWN. P-CONTINUE TO MONITOR & PROVIDE PHYSICAL ASSISTANCE & EMOTIONAL SUPPORT.
--- NOTE | 2019-06-08 05:23 | NUR ---
PT HAS SLEPT PAST 2200.
--- NOTE | 2019-06-08 08:00 | NUR ---
Treatment Plan meeting with Dr. Powell RN, AT, SW and [facility]. Plan for discharge today. Pt. will return home with Follow up appointments scheduled. Pt. will arrive to assist patient with discharge home.
[2019-06-08 08:01] VITALS: BP 104/65
[2019-06-08] MEDS ORDERED: QUETIAPINE FUMA50 M1 PO (08:28)
[2019-06-08] MEDS ORDERED: BRIN20TA PO (08:28)
[2019-06-08] MEDS ORDERED: HYDROXYZINE PAM25 M1 PO (08:28)
[2019-06-08] MEDS ORDERED: BRIN10TA PO (08:28)
--- NOTE | 2019-06-08 08:45 | NUR ---
RHEA HOUSE FATHER ON UNIT TO SEE PT AT THIS TIME.
--- NOTE | 2019-06-08 09:27 | NUR ---
Patient is discharging today to home with her . Follow-up was scheduled at [facility] office with ICE HOCKEY COACH for psychaitry and Tatiana RAMOS for counseling. While at [facility], pt's mood improved. Pt denies suidicial ideations. She is future-oriented voicing excitement about moving to a new apartment. Pt was pleasant and cooperative with staff but did tend to isolate away from her peers.
--- NOTE | 2019-06-08 11:55 | NUR ---
PT IS ALERT AND ORIENTED X4. MEMORY INTACT. RESPS EASY AND EVEN ON ROOM AIR. MOOD IS STABLE, AFFECT IS APPROPRIATE. PT DENIES FEELING SAD OR DEPRESSED. PT STATES SHE IS FEELING GOOD AND IS READY TO GO HOME TODAY. PT DENIES SI/HI, INTENT OR PLAN. PT DENIES HALLUCINATIONS, NO RESPONSE TO INTERNAL STIMULI NOTED. NO PARANOIA OR DELUSIONS NOTED. PT IS MEDICATION COMPLIANT WITHOUT DIFFICULTY. EXPRESSES UNDERSTANDING OF MEDICATIONS AND THEIR INTENDED USES. NO DISTRESS NOTED. Q15 MIN MONITORING CONTINUES. PLAN TO ASSIST PT IN PREPARING FOR HOSPITAL DISCHARGE THIS DATE.
--- NOTE | 2019-06-08 11:57 | NUR ---
AM GROUP/MUSIC AND GAMES PT ATTENDED GROUP AND PARTICIPATED BY WORKING ON [employer] PUZZLES. PT EXPRESSED NO SUICIDAL IDEATIONS DURING GROUP. PT IS TO BE DISCHARGED FROM THE UNIT TODAY.
--- NOTE | 2019-06-08 12:18 | NUR ---
PT DISCHARGED AT THIS TIME TO HOME VIA PRIVATE TRANSPORTATION WITH PT'S JORGE HAMMONDS. ALL DISCHARGE INSTRUCTIONS REVIEWED WITH PT PRIOR TO DISCHARGE. ALL PERSONAL BELONGINGS WERE SENT WITH THE PT. PT LEFT THE UNIT IN STABLE CONDITION AT 1218 ESCORTED VIA WHEELCHAIR BY [facility] MENTAL HEALTH WORKER.
[2019-06-21] MEDS ORDERED: VIIBRYD40 PO (09:06)
[2019-06-21] MEDS ORDERED: QUETIAPINE FUMA50 M1 PO (09:06)
[2019-06-21] MEDS ORDERED: HYDROXYZINE PAM25 M1 PO (09:06)
[2019-07-02] MEDS ORDERED: ZOFRAN4 MG PO (22:18)
[2019-07-02] MEDS ORDERED: SEPTDS PO (22:18)
== END 2019-06-08 11:21 | disposition home or self-care (01) | DRG 885 ==
LOC: ED 10:17 → 3N 12:32
PROVIDERS: Emergency Medicine; ADMIT Psychiatry & Neurology Psychiatry
DX: F31.30 Bipolar disorder, current episode depressed, mild or moderate severity, unspecified (principal); R45.851 Suicidal ideations; R82.71 Bacteriuria; E87.8 Other disorders of electrolyte and fluid balance, not elsewhere classified; F41.1 Generalized anxiety disorder; K21.9 Gastro-esophageal reflux disease without esophagitis; D64.9 Anemia, unspecified; F60.3 Borderline personality disorder; E78.5 Hyperlipidemia, unspecified; E03.9 Hypothyroidism, unspecified; E55.9 Vitamin D deficiency, unspecified; E66.9 Obesity, unspecified; F34.0 Cyclothymic disorder; Z68.35 Body mass index [BMI] 35.0-35.9, adult

== ENCOUNTER 2019-06-15 12:39 | Emergency (ER) | payer OTHER, MEDICAID ==
[~2019-06-15] VITALS: Ht 167.6 cm; Wt 74.8 kg
[~2019-06-15 12:39] MED LIST changes: +BRIN10TA PO; +OYSTER SHELL C500 M4 PO; +VISTARIL50 MG PO
[2019-06-15 13:33] LABS: BASO # 0.1 10*3/uL (0.0-0.1); BASO % 1.4 % (0.0-1.0); EOS # 0.2 10*3/uL (0.0-0.4); EOS % 3.6 % (1.0-4.0); HEMATOCRIT 37.9 % (37.0-47.0); LYMPH # 1.9 10*3/uL (1.3-4.4); LYMPH % 32.8 % (27.0-41.0); MEAN CELL VOLUME 88.1 fl (81.0-99.0); MEAN CORPUSCULAR HGB 30.2 pg (27.0-31.0); MEAN CORPUSCULAR HGB CONC 34.3 g/dl (33.0-37.0); MEAN PLATELET VOLUME 10.9 fl (9.6-12.3); MONO # 0.5 10*3/uL (0.1-1.0); MONO % 8.2 % (3.0-9.0); NEUT # 3.1 10*3/uL (2.3-7.9); NEUT % 53.7 % (47.0-73.0); PLATELET COUNT AUTOMATED 271 10*3/uL (130-400); RED CELL DISTRI WIDTH 13.8 % (0-14.5); WHITE BLOOD COUNT 5.8 10*3/uL (4.8-10.8)
[2019-06-15 13:37] LABS: BILIRUBIN NEGATIVE (NEGATIVE); BLOOD 2+ (NEGATIVE); CLARITY CLEAR (CLEAR); COLOR YELLOW (YELLOW); GLUCOSE NEGATIVE (NEGATIVE); KETONE NEGATIVE (NEGATIVE); LEUKO ESTERASE 1+ (NEGATIVE); NITRITE NEGATIVE (NEGATIVE); PH 5.5 (5.0-9.0); UROBILINOGEN 0.2 E.U./dl (0.2-1.0)
[2019-06-15 13:44] LABS: URINE AMPHETAMINES < 1000 (1000ng/ml); URINE BARBITURATES < 200 (200ng/ml); URINE BENZODIAZEPINES < 200 (200ng/ml); URINE CANNABINOIDS (THC) < 50 (50ng/ml); URINE COCAINE < 300 (300ng/ml); URINE METHADONE < 300 (300ng/ml); URINE OPIATES < 300 (300ng/ml); URINE PHENCYCLIDINE < 25 (25ng/ml)
[2019-06-15 13:50] LABS: BACTERIA 3+
[2019-06-15 13:51] LABS: CALCIUM OXALATE CRYSTALS 1+; MUCOUS 1+
[2019-06-15 13:53] LABS: ALBUMIN 3.5 gm/dl (3.1-4.5); ALKALINE PHOSPHATASE 73 U/L (45-117); BUN 15 mg/dl (7-24); CHLORIDE 106 mmol/L (98-107); CREATININE 1.12 mg/dL (0.55-1.02); POTASSIUM 3.5 mmol/L (3.5-5.1); SGOT/AST 16 IU/L (3-35); SGPT/ALT 19 U/L (12-78); SODIUM 139 mmol/L (136-145); TOTAL PROTEIN 7.1 gm/dL (6.4-8.2)
[2019-06-15 14:20] LABS: ACETAMINOPHEN (TYLENOL) < 5.0 ug/ml (10-30); ETHYL ALCOHOL < 3.0 mg/dl (<3)
[2019-06-21] MEDS ORDERED: QUETIAPINE FUMA50 M1 PO (09:06)
[2019-06-21] MEDS ORDERED: VIIBRYD40 PO (09:06)
[2019-06-21] MEDS ORDERED: HYDROXYZINE PAM25 M1 PO (09:06)
[2019-07-02] MEDS ORDERED: SEPTDS PO (22:18)
[2019-07-02] MEDS ORDERED: ZOFRAN4 MG PO (22:18)
== END 2019-06-15 13:59 | disposition home or self-care (01) ==
LOC: ED 12:39
PROVIDERS: Emergency Medicine
DX: F60.3 Borderline personality disorder (principal); F31.9 Bipolar disorder, unspecified; F41.1 Generalized anxiety disorder; K21.9 Gastro-esophageal reflux disease without esophagitis; E78.5 Hyperlipidemia, unspecified; E03.9 Hypothyroidism, unspecified; E66.9 Obesity, unspecified; Z68.30 Body mass index [BMI] 30.0-30.9, adult; Z88.1 Allergy status to other antibiotic agents; Z88.8 Allergy status to other drugs, medicaments and biological substances; Z88.0 Allergy status to penicillin; Z79.899 Other long term (current) drug therapy

== ENCOUNTER 2019-06-23 19:57 | Observation (INO) | payer OTHER, MEDICAID ==
[2019-06-23] VITALS (8 sets, daily range): BP systolic 95–115; BP diastolic 35–68
[~2019-06-23] VITALS: Ht 152.4 cm; Wt 84.6 kg
--- NOTE | ~2019-06-23 | EKG ---
[place], [place] ELECTROCARDIOGRAM REPORT NAME: DANIEL HAMMONDS UNIT #: [id number] ROOM: 503 DOCTOR: DIMAS DRAFT REPORT BIRTHDATE: [birth year] [facility] Test Date: 2019-06-23 Test Time: 23:08:50 Pat Name: DANIEL HAMMONDS Department: Room: 503 Gender: F Receiver: : 1965 Requested By: VIKKI RIVAS Order Number: [id number] Reading MD: Grant Singh Measurements Intervals [place] Rate: 58 P: -6 WV: 181 QRS: -3 QRSD: 95 T: 31 QT: 467 QTc: 459 Interpretive Statements Sinus rhythm RSR' in V1 or V2, right VCD or RVH Compared to ECG 06/17/2019 12:48:51 No significant changes Electronically Signed On 06-24-2019 12:50:52 PDT by Grant Singh CM:EKGRPT:ELECTROCARDIOGRAM REPORT 1250 VIKKI RIVAS MD EPIPHANY DRAFT REPORT VIKKI RIVAS MD
--- NOTE | ~2019-06-23 | EKG ---
[place], [place] ELECTROCARDIOGRAM REPORT NAME: DANIEL HAMMONDS UNIT #: [id number] ROOM: 503 DOCTOR: DIMAS DRAFT REPORT BIRTHDATE: [birth year] [facility] Test Date: 2019-06-24 Test Time: 02:13:07 Pat Name: DANIEL HAMMONDS Department: Room: 503 Gender: F Overlock Operator: : 1965 Requested By: VIKKI RIVAS Order Number: [id number] Reading MD: Grant Singh Measurements Intervals [place] Rate: 63 P: 28 SD: 182 QRS: -3 QRSD: 96 T: 28 QT: 447 QTc: 458 Interpretive Statements Sinus rhythm Abnormal R-wave progression, early transition Compared to ECG 06/17/2019 12:48:51 Right ventricular hypertrophy no longer present Electronically Signed On 06-24-2019 12:51:26 PDT by Grant Singh CM:EKGRPT:ELECTROCARDIOGRAM REPORT 1251 VIKKI RIVAS MD EPIPHANY DRAFT REPORT VIKKI RIVAS MD
--- NOTE | ~2019-06-23 | EKG ---
[place], [place] ELECTROCARDIOGRAM REPORT NAME: DANIEL HAMMONDS UNIT #: [id number] ROOM: 503 DOCTOR: DIMAS DRAFT REPORT BIRTHDATE: [birth year] [facility] Test Date: 2019-06-23 Test Time: 20:02:56 Pat Name: DANIEL HAMMONDS Department: Room: 503 Gender: F History Professor: : 1965 Requested By: VIKKI RIVAS Order Number: [id number] Reading MD: Grant Singh Measurements Intervals [place] Rate: 69 P: 4 [place]: 171 QRS: 7 QRSD: 95 T: 39 QT: 418 QTc: 448 Interpretive Statements Sinus rhythm RSR' in V1 or V2, right VCD or RVH Compared to ECG 06/17/2019 12:48:51 No significant changes Electronically Signed On 06-24-2019 12:49:24 PDT by Grant Singh CM:EKGRPT:ELECTROCARDIOGRAM REPORT 01 1249 VIKKI COCHRAN DRAFT REPORT VIKKI RIVAS MD
[~2019-06-23 19:57] MED LIST changes: +VIIBRYD40 PO
[2019-06-23 20:32] LABS: BASO # 0.1 10*3/uL (0.0-0.1); BASO % 1.2 % (0.0-1.0); EOS # 0.3 10*3/uL (0.0-0.4); EOS % 4.4 % (1.0-4.0); HEMATOCRIT 36.6 % (37.0-47.0); HEMOGLOBIN 12.2 g/dl (12.0-16.0); LYMPH # 2.6 10*3/uL (1.3-4.4); MEAN CELL VOLUME 89.3 fl (81.0-99.0); MEAN CORPUSCULAR HGB 29.8 pg (27.0-31.0); MEAN CORPUSCULAR HGB CONC 33.3 g/dl (33.0-37.0); MEAN PLATELET VOLUME 10.5 fl (9.6-12.3); MONO # 0.8 10*3/uL (0.1-1.0); MONO % 9.7 % (3.0-9.0); NEUT # 3.9 10*3/uL (2.3-7.9); NEUT % 50.3 % (47.0-73.0); PLATELET COUNT AUTOMATED 315 10*3/uL (130-400); RED CELL DISTRI WIDTH 13.8 % (0-14.5); WHITE BLOOD COUNT 7.7 10*3/uL (4.8-10.8)
[2019-06-23 20:48] LABS: ALBUMIN 3.3 gm/dl (3.1-4.5); ALKALINE PHOSPHATASE 71 U/L (45-117); BUN 14 mg/dl (7-24); CHLORIDE 110 mmol/L (98-107); CREATININE 1.18 mg/dL (0.55-1.02); POTASSIUM 3.5 mmol/L (3.5-5.1); SGOT/AST 18 IU/L (3-35); SGPT/ALT 18 U/L (12-78); SODIUM 143 mmol/L (136-145); TOTAL PROTEIN 6.7 gm/dL (6.4-8.2)
[2019-06-23 20:50] LABS: TROPONIN I < 0.015 ng/ml (<0.045)
[2019-06-23 20:58] LABS: ACT PARTIAL THROMBO TIME 23.3 SECONDS (20.0-32.1); INTERNATIONAL NORM RATIO 0.9 (2.0-3.5)
--- NOTE | 2019-06-23 22:15 | NUR ---
A 54, admitted OBSERVATION PATIENT to , under the services of BUNNY Vargas DO with a diagnosis of CHEST PAIN R/O MD. Chief complaint is CHEST PAIN. Patient arrived via stretcher from ER. Monitor applied. Initial assessment completed. Vital signs taken and recorded. BUNNY VARGAS DO notified of admission to the unit. Orders received. See assessment for past medical history, medications and allergies. Patient and/or family oriented to unit. [facility] visitation policy reviewed. Clothing/patient valuable form completed. BINH COWART
--- NOTE | 2019-06-23 22:30 | NUR ---
MED LIST REVIEWED WITH PATIENT.
[2019-06-23] MEDS ORDERED: VISTARIL50 MG PO (23:08)
[2019-06-24] VITALS: BP 104/58
--- NOTE | 2019-06-24 01:00 | NUR ---
PATIENT DENIES NEED FOR PAIN MEDICATION AT THIS TIME.
--- NOTE | 2019-06-24 03:25 | NUR ---
24 HR chart check completed.
[2019-06-24 04:00] VITALS: BP 90/60
--- NOTE | 2019-06-24 09:00 | NUR ---
Vaccinator in to talk to patient. Patient states lives at home with her . There are 40 steps in the home. Physician: Jacobo Albarado Pharmacy: [facility] Home health services: none Patient's level of ADLs: INDEPENDENT Patient has working utilities: yes DME: none Follow-up physician's appointment after d/c: will be made by the hospitalist nurse director upon discharge Does patient want to access PORTAL?: no Discharge plan discussed with patient and her who is at the bedside. She lives at home with her . She is independent in her ADLs and ambulation. She states they have 40 steps in the home and are getting ready to move to another location. Discussed home health care services and she denies any home needs at this time. When medically stable she will be discharged to home. to transport on discharge. TINO BEARD
--- NOTE | 2019-06-24 11:40 | NUR ---
Discharge instructions reviewed with patient/family. Patient receptive and verbalizes understanding. Follow-up care arranged. Written instructions given to patient/family. MARY BETH MEHTA
[2019-07-02] MEDS ORDERED: ZOFRAN4 MG PO (22:18)
[2019-07-02] MEDS ORDERED: SEPTDS PO (22:18)
== END 2019-06-24 11:40 | disposition home or self-care (01) ==
LOC: ED 19:57 → 5E 21:52 → EDHOLD 21:52 → 5E 22:11
PROVIDERS: Emergency Medicine Emergency Medical Services; ADMIT Internal Medicine
DX: R07.89 Other chest pain (principal); I95.9 Hypotension, unspecified; N17.9 Acute kidney failure, unspecified; R00.1 Bradycardia, unspecified; E87.8 Other disorders of electrolyte and fluid balance, not elsewhere classified; D64.9 Anemia, unspecified; F41.1 Generalized anxiety disorder; F32.9 Major depressive disorder, single episode, unspecified; E78.5 Hyperlipidemia, unspecified; K21.9 Gastro-esophageal reflux disease without esophagitis; E03.9 Hypothyroidism, unspecified; N18.3 Chronic kidney disease, stage 3 (moderate)

== ENCOUNTER → 2019-09-05 | Outpatient (CLI) | payer OTHER ==
[2019-09-05 08:20] LABS: HEMATOCRIT 38.8 % (37.0-47.0); HEMOGLOBIN 12.8 g/dl (12.0-16.0); MEAN CELL VOLUME 89.8 fl (81.0-99.0); MEAN CORPUSCULAR HGB 29.6 pg (27.0-31.0); MEAN PLATELET VOLUME 9.9 fl (9.6-12.3); RED BLOOD COUNT 4.32 10*6/uL (4.10-5.10); RED CELL DISTRI WIDTH 13.6 % (0-14.5)
[2019-09-05 08:53] LABS: ALBUMIN 3.4 gm/dl (3.1-4.5); ALKALINE PHOSPHATASE 76 U/L (45-117); BUN 14 mg/dl (7-24); CHLORIDE 104 mmol/L (98-107); CHOLESTEROL 171 mg/dL (<200); CREATININE 0.95 mg/dL (0.55-1.02); HDL CHOLESTEROL 60 mg/dl (40-60); LDL CHOLESTEROL 89 mg/dL (9-159); POTASSIUM 3.8 mmol/L (3.5-5.1); SGOT/AST 15 IU/L (3-35); SGPT/ALT 26 U/L (12-78); SODIUM 140 mmol/L (136-145); TOTAL PROTEIN 7.3 gm/dL (6.4-8.2); TRIGLYCERIDES 108 mg/dl (<150); VLDL CHOLESTEROL 22 mg/dL (6-40)
== END | disposition home or self-care (01) ==
LOC: LAB 07:43
PROVIDERS: Registered Nurse Flight
DX: E03.9 Hypothyroidism, unspecified (principal); K85.30 Drug induced acute pancreatitis without necrosis or infection; E78.00 Pure hypercholesterolemia, unspecified

== ENCOUNTER 2024-10-03 09:10 | Emergency (ER) | payer OTHER ==
[~2024-10-03] VITALS: Ht 152.4 cm; Wt 64.0 kg
[~2024-10-03 09:10] MED LIST changes: +VISTARIL25 MG PO
[2024-10-03] MEDS ORDERED: VENLAFAXINE HY150 M2 PO (09:30)
[2024-10-03] MEDS ORDERED: MELADOX NATURAL3 MG PO (09:30)
[2024-10-03] MEDS ORDERED: VRAYLAR3 MG PO (09:30)
[2024-10-03] MEDS ORDERED: RIVASTIGMINE T1.5 M1 PO (09:30)
[2024-10-03] MEDS ORDERED: OMEPRAZOLE40 MG PO (09:32)
[2024-10-03] MEDS ORDERED: MEDROL DOSEPAK4 MG PO (11:02)
== END 2024-10-03 11:08 | disposition home or self-care (01) ==
LOC: ED 09:10
DX: M19.012 Primary osteoarthritis, left shoulder (principal); F41.9 Anxiety disorder, unspecified; K21.9 Gastro-esophageal reflux disease without esophagitis; D64.9 Anemia, unspecified; E78.00 Pure hypercholesterolemia, unspecified; F31.9 Bipolar disorder, unspecified; E03.9 Hypothyroidism, unspecified; Z88.0 Allergy status to penicillin; Z88.1 Allergy status to other antibiotic agents; Z88.8 Allergy status to other drugs, medicaments and biological substances; Z90.710 Acquired absence of both cervix and uterus; Z90.49 Acquired absence of other specified parts of digestive tract; Z98.890 Other specified postprocedural states

== ENCOUNTER 2024-10-10 12:10 | Emergency (ER) | payer OTHER ==
[~2024-10-10] VITALS: Ht 152.4 cm; Wt 64.0 kg
[~2024-10-10 12:10] MED LIST changes: +MEDROL DOSEPAK4 MG PO; +MELADOX NATURAL3 MG PO; +OMEPRAZOLE40 MG PO; +RIVASTIGMINE T1.5 M1 PO; +VENLAFAXINE HY150 M2 PO; +VRAYLAR3 MG PO
[2024-10-10 12:43] LABS: HEMATOCRIT 42.1 % (37.0-47.0); MEAN CELL VOLUME 93.1 fl (81.0-99.0); MEAN CORPUSCULAR HGB 29.9 pg (27.0-31.0); MEAN CORPUSCULAR HGB CONC 32.1 g/dl (33.0-37.0); PLATELET COUNT AUTOMATED 301 10*3/uL (130-400); RED BLOOD COUNT 4.52 10*6/uL (4.10-5.10); RED CELL DISTRI WIDTH 13.8 % (0-14.5); WHITE BLOOD COUNT 10.8 10*3/uL (4.8-10.8)
[2024-10-10 12:47] LABS: MANUAL DIFF REFLEX YES
[2024-10-10 13:04] LABS: BUN 20 mg/dl (9-23); CHLORIDE 103 mmol/L (98-107); POTASSIUM 3.4 mmol/L (3.4-5.1)
[2024-10-10 13:05] LABS: BASOPHILS 1 % (0-1); TOTAL CELLS COUNTED 100 #CELLS
[2024-10-10 13:06] LABS: ETHYL ALCOHOL < 3.0 mg/dl (<3); PLATELET SUFFICIENCY NORMAL (NORMAL); TARGET CELLS FEW
[2024-10-10 13:50] LABS: BILIRUBIN Negative (Negative); BLOOD 1+ (Negative); CLARITY Clear (Clear); COLOR Yellow (Yellow); GLUCOSE Negative (Negative); KETONE Negative (Negative); LEUKO ESTERASE 1+ (Negative); NITRITE Negative (Negative); PH 5.5 (4.5-8.0); UROBILINOGEN 0.2 E.U./dl (0.0-1.0)
[2024-10-10 13:58] LABS: URINE AMPHETAMINES Negative (1000ng/ml); URINE BARBITURATES Negative (200ng/ml); URINE BENZODIAZEPINES Negative (200ng/ml); URINE CANNABINOIDS (THC) Negative (50ng/ml); URINE COCAINE Negative (300ng/ml); URINE METHADONE Negative (300ng/ml); URINE OPIATES Negative (300ng/ml); URINE PHENCYCLIDINE Negative (25ng/ml)
[2024-10-10 14:01] LABS: BACTERIA 1+
== END 2024-10-10 21:53 ==
LOC: ED 12:10
PROVIDERS: Physician Assistant Medical
DX: F43.21 Adjustment disorder with depressed mood (principal); F32.A Depression, unspecified; K21.9 Gastro-esophageal reflux disease without esophagitis; E78.5 Hyperlipidemia, unspecified; F41.9 Anxiety disorder, unspecified; D64.9 Anemia, unspecified; E03.9 Hypothyroidism, unspecified; E78.00 Pure hypercholesterolemia, unspecified; Z79.899 Other long term (current) drug therapy; Z88.1 Allergy status to other antibiotic agents; Z88.0 Allergy status to penicillin; Z88.8 Allergy status to other drugs, medicaments and biological substances; Z90.49 Acquired absence of other specified parts of digestive tract; Z90.710 Acquired absence of both cervix and uterus; Z98.890 Other specified postprocedural states

== ENCOUNTER 2024-10-30 09:30 | Emergency (ER) | payer OTHER ==
[~2024-10-30] VITALS: Ht 152.4 cm; Wt 68.5 kg
[2024-10-30] MEDS ORDERED: VIBRAMYCIN100 MG PO (10:00)
== END 2024-10-30 10:07 | disposition home or self-care (01) ==
LOC: ED 09:30
DX: N61.1 Abscess of the breast and nipple (principal); F41.9 Anxiety disorder, unspecified; K21.9 Gastro-esophageal reflux disease without esophagitis; D64.9 Anemia, unspecified; F31.9 Bipolar disorder, unspecified; E03.9 Hypothyroidism, unspecified; E78.00 Pure hypercholesterolemia, unspecified; Z88.0 Allergy status to penicillin; Z88.1 Allergy status to other antibiotic agents; Z88.8 Allergy status to other drugs, medicaments and biological substances; Z90.49 Acquired absence of other specified parts of digestive tract; Z90.710 Acquired absence of both cervix and uterus; Z98.890 Other specified postprocedural states

== ENCOUNTER → 2024-11-02 | Outpatient (CLI) | payer OTHER ==
[2024-11-02 10:27] LABS: BASO # 0.1 10*3/uL (0.0-0.1); BASO % 1.4 % (0.0-1.0); EOS # 0.3 10*3/uL (0.0-0.4); HEMATOCRIT 38.1 % (37.0-47.0); MEAN CELL VOLUME 91.1 fl (81.0-99.0); MEAN CORPUSCULAR HGB 30.4 pg (27.0-31.0); MEAN CORPUSCULAR HGB CONC 33.3 g/dl (33.0-37.0); MEAN PLATELET VOLUME 9.4 fl (9.6-12.3); MONO # 0.5 10*3/uL (0.1-1.0); MONO % 9.2 % (3.0-9.0); NEUT # 3.6 10*3/uL (2.3-7.9); PLATELET COUNT AUTOMATED 287 10*3/uL (130-400); RED BLOOD COUNT 4.18 10*6/uL (4.10-5.10); RED CELL DISTRI WIDTH 13.9 % (0-14.5); WHITE BLOOD COUNT 5.8 10*3/uL (4.8-10.8)
[2024-11-02 11:25] LABS: ALKALINE PHOSPHATASE 96 U/L (46-116); BUN 14 mg/dl (9-23); CHLORIDE 106 mmol/L (98-107); CHOLESTEROL 175 mg/dL (<200); LDL CHOLESTEROL 84 mg/dL (9-159); POTASSIUM 3.8 mmol/L (3.4-5.1); SGPT/ALT 8 U/L (5-49); TOTAL PROTEIN 7.1 gm/dL (6.0-8.0)
== END | disposition home or self-care (01) ==
LOC: LAB 09:32 → US 11:30
PROVIDERS: Internal Medicine; ATTEND Family Medicine
DX: N61.1 Abscess of the breast and nipple (principal); E03.9 Hypothyroidism, unspecified; E78.2 Mixed hyperlipidemia; I95.9 Hypotension, unspecified

== ENCOUNTER 2025-07-14 12:38 | Emergency (ER) | payer MEDICARE ==
[~2025-07-14] VITALS: Wt 78.9 kg
[2025-07-14 13:45] LABS: URINE AMPHETAMINES Negative (1000ng/ml); URINE BARBITURATES Negative (200ng/ml); URINE BENZODIAZEPINES Negative (200ng/ml); URINE CANNABINOIDS (THC) Negative (50ng/ml); URINE COCAINE Negative (300ng/ml); URINE METHADONE Negative (300ng/ml); URINE OPIATES Negative (300ng/ml); URINE PHENCYCLIDINE Negative (25ng/ml)
[2025-07-14 13:49] LABS: BILIRUBIN Negative (Negative); BLOOD 1+ (Negative); CLARITY Clear (Clear); COLOR Yellow (Yellow); KETONE Negative (Negative); LEUKO ESTERASE Negative (Negative); NITRITE Negative (Negative); PH 6.5 (4.5-8.0); SPECIFIC GRAVITY 1.010 (1.001-1.030); UROBILINOGEN 0.2 E.U./dl (0.0-1.0)
[2025-07-14 14:05] LABS: BASO # 0.1 10*3/uL (0.0-0.1); BASO % 1.2 % (0.0-1.0); EOS # 0.2 10*3/uL (0.0-0.4); EOS % 2.5 % (1.0-4.0); MEAN CELL VOLUME 93.9 fl (81.0-99.0); MEAN CORPUSCULAR HGB 30.1 pg (27.0-31.0); MEAN PLATELET VOLUME 10.3 fl (9.6-12.3); MONO # 0.6 10*3/uL (0.1-1.0); MONO % 8.9 % (3.0-9.0); NEUT # 4.3 10*3/uL (2.3-7.9); NEUT % 66.0 % (47.0-73.0); NUCLEATED RED BLOOD CELL 0.0 % (0.0-0.0); NUCLEATED RED BLOOD CELL 0.0 10*3/uL (0.0-0.0); PLATELET COUNT AUTOMATED 284 10*3/uL (130-400); RED CELL DISTRI WIDTH 13.6 % (0-14.5)
[2025-07-14 14:20] LABS: BUN 9 mg/dl (9-23)
[2025-07-14 14:21] LABS: ETHYL ALCOHOL < 3.0 mg/dl (<3)
[2025-07-14] MEDS ORDERED: POTASSIUM CHLORIDE 20 MEQ TAB PO ONE (14:25)
== END 2025-07-14 14:35 | disposition home or self-care (01) ==
LOC: ED 12:38
PROVIDERS: Emergency Medicine
DX: F32.A Depression, unspecified (principal); Z90.710 Acquired absence of both cervix and uterus; Z90.49 Acquired absence of other specified parts of digestive tract; Z88.0 Allergy status to penicillin; Z88.1 Allergy status to other antibiotic agents; Z88.5 Allergy status to narcotic agent; Z88.8 Allergy status to other drugs, medicaments and biological substances